=== PATIENT | male | born 1940 | race Caucasian/White ===

== ENCOUNTER 2016-10-01 06:55 | Inpatient (IN) | payer MEDICARE ==
[~2016-10-01] VITALS: Ht 170.2 cm; Wt 56.0 kg
[~2016-10-01 06:55] MED LIST: ALBU2.5V14 NEB; ASPI-612 PO; BUDE10.2 IH; CEFU500T46 PO; CYCL5TAB PO; FENT1PAT21 TD; GUAI118L20 PO; LORA2TAB89 PO; METO25TA4 PO; OMEG1CAP65 PO; OMEP20CA9 PO; OXYC1TAB9 PO; PROVENTIL HFA6.7 GM IH; SERT50TA8 PO; SIMV80TA3 PO; TIOT18CA IH; TRAZ100T12 PO; VITA1CAP PO; VITA400C11 PO; WARF4TAB68 PO; ZINC50TA29 PO
[2016-10-01] MEDS ORDERED: 0.9 % SODIUM CHLORIDE 10 ML DISP.SYRIN. IV PRN (07:15)
[2016-10-01 07:22] LABS: BASO % 1 % (0-3); EOS % 6 % (0-3); HEMATOCRIT 39.9 % (39.0-53.0); HEMOGLOBIN 13.2 g/dL (13.0-17.5); LYMPH # 1.2 x10^3/uL (1.0-4.8); LYMPH % 18 % (24-48); MEAN CORPUSCULAR HEMOGLOBIN 31 pg (25-35); MEAN CORPUSCULAR HGB CONC 33 g/dL (31-37); MEAN CORPUSCULAR VOLUME 93 fL (79-100); MONO % 11 % (0-9); NEUT % 65 % (31-73); PLATELET COUNT 327 x10^3/uL (140-400); RED BLOOD COUNT 4.31 x10^6/uL (4.30-5.70); RED CELL DISTRIBUTION WIDTH 14.3 % (11.5-14.5); WHITE BLOOD COUNT 6.7 x10^3/uL (4.0-11.0)
[2016-10-01] MEDS ORDERED: IV NORMAL SALINE 1000ML BAG 1,000 ML IV SCH (07:30)
[2016-10-01 07:34] LABS: INR 2.4 (0.8-1.1)
--- NOTE | 2016-10-01 07:58 | RAD ---
Indication change in mental status. Protocol study. A single view of the chest was obtained and is compared to an examination 05/18/2015. Postoperative changes are noted. There are probable background changes of emphysema or fibrosis. There is no consolidated pneumonia. Heart size and pulmonary vessels are within normal limits. Slight blunting of both costophrenic angles may be chronic reflecting scar. Small pleural effusions are not excluded. IMPRESSION: Chronic changes. No definite acute or focal process seen in the chest
[2016-10-01] MEDS ORDERED: fentaNYL PF VIAL 100 MCG/2 ML VIAL IV ONE ×2 (08:00→10:15)
--- NOTE | 2016-10-01 08:16 | EKG ---
[facility] [address] [place] [address] Test Date: 2016-10-01 Test Time: 07:25:24 Pat Name: MARVEL COHEN Department: Room: Gender: [employer] Operator Chief: : 1940 Requested By: JAMEL CRANE Order Number: [id number] Reading MD: Lakhwinder Collazo Measurements Intervals [place] Rate: 91 P: 53 FL: 172 QRS: 34 QRSD: 84 T: 64 QT: 346 QTc: 427 Interpretive Statements SINUS RHYTHM RI6.01 Unconfirmed report Compared to ECG 05/18/2015 15:19:16 No significant changes Electronically Signed On 10-01-2016 13:26:30 CDT by Lakhwinder Collazo
[2016-10-01 08:39] LABS: CALCIUM 8.6 mg/dL (8.5-10.1); CREATININE 0.7 mg/dL (0.7-1.3); GFR 110.2; POTASSIUM 3.6 mmol/L (3.5-5.1)
--- NOTE | 2016-10-01 08:39 | RAD ---
Indication change in mental status. Suspect CVA. Noncontrast images of the head were obtained. Note is made of a previous examination 12/06/2014. The calvarium appears unremarkable. There is a low-density mass occupying the frontal sinuses and extending into the ethmoid air cells. This is unchanged relative to the previous CT examination and is well represented on a MRI 01/05/2012 and likely parts representative of a chronic mucocele. There is partial opacification of the left maxillary sinus. Focal10 sinusitis is not excluded. The sphenoid sinus appears unremarkable as does the right maxillary sinus There is no subdural or epidural hematoma. There is no mass or midline shift. No hemorrhage is seen. No acute intracranial finding is apparent. IMPRESSION: No acute intracranial finding PQRS Compliance Statement: One or more of the following individualized dose reduction techniques were utilized for this examination: 1. Automated exposure control 2. Adjustment of the mA and/or kV according to patient size 3. Use of iterative reconstruction technique
[2016-10-01 08:45] LABS: ALBUMIN 3.3 g/dL (3.4-5.0); DIRECT BILIRUBIN 0.1 mg/dL (0.0-0.2); MAGNESIUM 2.1 mg/dL (1.8-2.4); TOTAL BILIRUBIN 0.5 mg/dL (0.2-1.0)
[2016-10-01 08:56] LABS: CKMB MASS 0.7 ng/mL (0.0-3.6); CREATINE KINASE 50 U/L (39-308)
--- NOTE | 2016-10-01 09:10 | PHYS DOC ---
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 Patient noted to be confused last night he went to bed and THIS morning according to the at the bedside and he did not recognize her. He denied any headache, chest pain, shortness of breath at the time. She did note any problems speaking or problems with orientation. Although he was not able to recommend her initially. On arrival he is awake alert and oriented 3 although he is very hard of hearing with broken hearing aids. There've been no changes in medications except the fact the baby he's not been using them as prescribed secondary the fact that they have been struggling financially and cannot afford them. Patient denies any trauma, fevers, neck pain, vision changes or other complaints. Review of Systems Review of Systems Constitutional: Denies fever or chills [] Eyes: Denies change in visual acuity, redness, or eye pain [] HENT: Denies nasal congestion or sore throat [] Respiratory: Denies cough he is chronically short of breath on 4-5 L nasal cannula is all the time. Cardiovascular: No additional information not addressed in HPI [] GI: Denies abdominal pain, nausea, vomiting, bloody stools or diarrhea [] : Denies dysuria or hematuria [] Musculoskeletal: She complains of chronic hip pain bilaterally chronic lower leg pain bilaterally chronic back pain Integument: Denies rash or skin lesions [] Neurologic: Denies headache, focal weakness or sensory changes he is very hard of hearing Endocrine: Denies polyuria or polydipsia [] Current Medications Current Medications Current Medications Medications (Trade) Dose Ordered Sig/Diogenes Start Time Stop Time Status Last Admin Dose Admin Acetaminophen (Tylenol) 650 mg PRN Q4HRS PRN 10/01/16 10:00 10/02/16 09:59 Albuterol/ Ipratropium (Duoneb) 3 ml RTQID 10/01/16 12:00 10/02/16 11:59 Azithromycin 250 ml @ 250 mls/hr 1X ONCE 10/01/16 10:15 10/01/16 11:14 Fentanyl Citrate (Fentanyl 2ml Vial) 75 mcg 1X ONCE 10/01/16 10:15 10/01/16 10:16 DC Methylprednisolone Sodium Succinate (SOLU-Medrol 125MG VIAL) 125 mg 1X ONCE 10/01/16 10:15 10/01/16 10:16 DC Ondansetron HCl (Zofran) 4 mg PRN Q8HRS PRN 10/01/16 10:00 10/02/16 09:59 Sodium Chloride 1,000 ml @ 100 mls/hr Q10H 10/01/16 10:15 10/02/16 10:14 Sodium Chloride (Normal Saline Flush) 10 ml QSHIFT PRN 10/01/16 07:15 Allergies Allergies Allergies Coded Allergies Type Severity Reaction Last Updated Verified ciprofloxacin Allergy Intermediate SKIN PEELS 12/03/14 Yes pentazocine Allergy Intermediate NERVOUS 12/03/14 Yes I S O L A T I O N *CONTACT* Allergy Unknown 06/11/14 Yes Physical Exam Physical Exam Agents vital signs reviewed upon arrival patient noted to be hypertensive which is chronic in nature for patient. Noted to be mildly hypoxic at 92% on room air Constitutional: Is thin and cachectic in no acute distress nontoxic in appearance. He's [place] night 3 able answer questions if you shout answers. HENT: Normocephalic, atraumatic, bilateral external ears normal, dry oropharynx with poor dentition., no oral exudates, nose normal. [] Eyes: PERRLA, EOMI, conjunctiva normal, no discharge. [] Neck: Normal range of motion, no tenderness, supple, no stridor. [] Cardiovascular:Heart rate regular rhythm, no murmur [] Lungs & Thorax: Decreased breath sounds bilaterally quiet with no optic wheezing no retractions noted evidence of accessory muscle use. Abdomen: Bowel sounds normal, soft, no tenderness, no masses, no pulsatile masses. [] Skin: Warm, dry, no erythema, no rash. [] Back: No tenderness, no CVA tenderness. [] Extremities: No tenderness, no cyanosis, no clubbing, ROM intact, no edema. [] Neurologic: Alert and oriented X 3, normal motor function, normal sensory function, no focal deficits noted. [] Psychologic: Affect normal, judgement normal, mood normal. [] stroke Score upon arrival was 0. 1a. Level of consciousness: 0 = Alert; keenly responsive. 1 = Not alert; but arousable by minor stimulation to obey, answer, or respond. 2 = Not alert; requires repeated stimulation to attend, or is obtunded and requires strong or painful stimulation to make movements (not stereotyped). 3 = Responds only with reflex motor or autonomic effects or totally unresponsive , flaccid, and areflexic. 1b. LOC questions: 0 = Answers both questions correctly. 1 = Answers one question correctly. 2 = Answers neither question correctly. 1c. LOC commands: 0 = Performs both tasks correctly. 1 = Performs one task correctly. 2 = Performs neither task correctly. 2. Best gaze: 0 = Normal. 1 = Partial gaze palsy; gaze is abnormal in one or both eyes, but forced deviation or total gaze paresis is not present. 2 = Forced deviation, or total gaze paresis not overcome by the oculocephalic maneuver. 3. Visual: 0 = No visual loss. 1 = Partial hemianopia. 2 = Complete hemianopia. 3 = Bilateral hemianopia (blind including cortical blindness). 4. Facial palsy: 0 = Normal symmetrical movements. 1 = Minor paralysis (flattened nasolabial fold, asymmetry on smiling). 2 = Partial paralysis (total or near-total paralysis of lower face). 3 = Complete paralysis of one or both sides (absence of facial movement in the upper and lower face). 5. Motor arm: 0 = No drift; limb holds 90 (or 45) degrees for full 10 seconds. 1 = Drift; limb holds 90 (or 45) degrees, but drifts down before full 10 seconds ; does not hit bed or other support. 2 = Some effort against gravity; limb cannot get to or maintain (if cued) 90 ( or 45) degrees, drifts down to bed, but has some effort against gravity. 3 = No effort against gravity; limb falls. 4 = No movement. UN = Amputation or joint fusion, explain: 5a. Left arm 5b. Right arm 6. Motor le = No drift; leg holds 30-degree position for full 5 seconds. 1 = Drift; leg falls by the end of the 5-second period but does not hit bed. 2 = Some effort against gravity; leg falls to bed by 5 seconds, but has some effort against gravity. 3 = No effort against gravity; leg falls to bed immediately. 4 = No movement. UN = Amputation or joint fusion, explain: 6a. Left leg 6b. Right leg 7. Limb ataxia: 0 = Absent. 1 = Present in one limb. 2 = Present in two limbs. UN = Amputation or joint fusion 8. Sensory: 0 = Normal; no sensory loss. 1 = Fpbu-qp-nygvfonz sensory loss; patient feels pinprick is less sharp or is dull on the affected side; or there is a loss of superficial pain with pinprick , but patient is aware of being touched. 2 = Severe to total sensory loss; patient is not aware of being touched in the face, arm, and leg. 9. Best language: 0 = No aphasia; normal. 1 = Zlki-oc-ysavmrgu aphasia; some obvious loss of fluency or facility of comprehension, without significant limitation on ideas expressed or form of expression. Reduction of speech and/or comprehension, however, makes conversation about provided materials difficult or impossible. For example, in conversation about provided materials, examiner can identify picture or naming card content from patient's response. 2 = Severe aphasia; all communication is through fragmentary expression; great need for inference, questioning, and guessing by the listener. Range of information that can be exchanged is limited; listener carries burden of communication. Examiner cannot identify materials provided from patient response. 3 = Mute, global aphasia; no usable speech or auditory comprehension. 10. Dysarthria: 0 = Normal. 1 = Kvav-ib-onnruadp dysarthria; patient slurs at least some words and, at worst , can be understood with some difficulty. 2 = Severe dysarthria; patient's speech is so slurred as to be unintelligible in the absence of or out of proportion to any dysphasia, or is mute/anarthric. UN = Intubated or other physical barrier, explain: 11. Extinction and inattention (formerly neglect): 0 = No abnormality. 1 = Visual, tactile, auditory, spatial, or personal inattention or extinction to bilateral simultaneous stimulation in one of the sensory modalities. 2 = Profound julee-inattention or extinction to more than one modality; does not recognize own hand or orients to only one side of space. Current Patient Data Vital Signs Vital Signs Date Time Temp Pulse Resp B/P (MAP) Pulse Ox O2 Delivery O2 Flow Rate FiO2 10/01/16 07:59 18 10/01/16 07:10 97.7 101 181/96 (124) 92 Room Air 97.7 Lab Values Laboratory Tests Test 10/01/16 07:00 10/01/16 08:00 10/01/16 09:04 White Blood Count 6.7 x10^3/uL (4.0-11.0) Red Blood Count 4.31 x10^6/uL (4.30-5.70) Hemoglobin 13.2 g/dL (13.0-17.5) Hematocrit 39.9 % (39.0-53.0) Mean Corpuscular Volume 93 fL (79-100) Mean Corpuscular Hemoglobin 31 pg (25-35) Mean Corpuscular Hemoglobin Concent 33 g/dL (31-37) Red Cell Distribution Width 14.3 % (11.5-14.5) Platelet Count 327 x10^3/uL (140-400) Neutrophils (%) (Auto) 65 % (31-73) Lymphocytes (%) (Auto) 18 % (24-48) L Monocytes (%) (Auto) 11 % (0-9) H Eosinophils (%) (Auto) 6 % (0-3) H Basophils (%) (Auto) 1 % (0-3) Neutrophils # (Auto) 4.4 x10^3uL (1.8-7.7) Lymphocytes # (Auto) 1.2 x10^3/uL (1.0-4.8) Monocytes # (Auto) 0.7 x10^3/uL (0.0-1.1) Eosinophils # (Auto) 0.4 x10^3/uL (0.0-0.7) Basophils # (Auto) 0.0 x10^3/uL (0.0-0.2) Prothrombin Time 25.0 SEC (11.7-14.0) H Prothrombin Time INR 2.4 (0.8-1.1) H PTT 54 SEC (24-38) H Sodium Level 141 mmol/L (136-145) Potassium Level 3.6 mmol/L (3.5-5.1) Chloride Level 105 mmol/L (98-107) Carbon Dioxide Level 28 mmol/L (21-32) Anion Gap 8 (6-14) Blood Urea Nitrogen 9 mg/dL (8-26) Creatinine 0.7 mg/dL (0.7-1.3) Estimated GFR (Cockcroft-Gault) 110.2 Glucose Level 107 mg/dL (70-99) H Lactic Acid Level 0.4 mmol/L (0.4-2.0) Calcium Level 8.6 mg/dL (8.5-10.1) Magnesium Level 2.1 mg/dL (1.8-2.4) Total Bilirubin 0.5 mg/dL (0.2-1.0) Direct Bilirubin 0.1 mg/dL (0.0-0.2) Aspartate Amino Transferase (AST) 24 U/L (15-37) Alanine Aminotransferase (ALT) 24 U/L (16-63) Alkaline Phosphatase 137 U/L (46-116) H Ammonia 18 mcmol/L (11-34) Creatine Kinase 50 U/L (39-308) Creatine Kinase MB (Mass) 0.7 ng/mL (0.0-3.6) Creatine Kinase MB Relative Index % (0-4) Troponin I Quantitative < 0.017 ng/mL (0.000-0.055) NP-Rhh-R-Type Natriuretic Peptide 574 pg/mL (0-124) H Total Protein 7.0 g/dL (6.4-8.2) Albumin 3.3 g/dL (3.4-5.0) L Thyroid Stimulating Hormone (TSH) 0.538 uIU/mL (0.358-3.74) Urine Collection Type Unknown Urine Color Yellow Urine Clarity Clear Urine pH 7.5 Urine Specific [place] 1.015 Urine Protein Negative mg/dL (NEG-TRACE) Urine Glucose (UA) Negative mg/dL (NEG) Urine Ketones (Stick) Negative mg/dL (NEG) Urine Blood Negative (NEG) Urine Nitrite Negative (NEG) Urine Bilirubin Negative (NEG) Urine Urobilinogen Dipstick 0.2 mg/dL (0.2 mg/dL) Urine Leukocyte Esterase Negative (NEG) Urine RBC 6-10 /HPF (0-2) Urine WBC 1-4 /HPF (0-4) Urine Squamous Epithelial Cells Mod /LPF Urine Bacteria Few /HPF (0-FEW) Laboratory Tests 10/01/16 07:00 Laboratory Tests 10/01/16 08:00 EKG EKG [] KG timed 0 7:25 AM demonstrates sinus rhythm at 91 IL interval of 172 QRS which is normal 84 QTC which is normal at 427 normal sinus rhythm analysis 7 T- wave changes consistent with acute ischemia. Read by Dr. Crane. Radiology/Procedures Radiology/Procedures [] [facility] [address] [place] [address] IMAGING REPORT Signed PATIENT: MARVEL COHEN ACCOUNT: [id number] : 1940 LOCATION: ER AGE: 76 SEX: M EXAM STATUS: REG ER ORD. PHYSICIAN: JAMEL CRANE MD REASON: ams PROCEDURE: PORTABLE CHEST 1V Indication change in mental status. Protocol study. A single view of the chest was obtained and is compared to an examination 05/18/2015. Postoperative changes are noted. There are probable background changes of emphysema or fibrosis. There is no consolidated pneumonia. Heart size and pulmonary vessels are within normal limits. Slight blunting of both costophrenic angles may be chronic reflecting scar. Small pleural effusions are not excluded. IMPRESSION: Chronic changes. No definite acute or focal process seen in the chest DICTATED and SIGNED BY: ROSALIA HERNANDEZ MD DATE: 10/01/16 075 CC: JAMEL CRANE MD; ILIANA PAUL [address] [place] [address] IMAGING REPORT Signed PATIENT: MARVEL COHEN ACCOUNT: [id number] : 1940 LOCATION: ER AGE: 76 SEX: M EXAM STATUS: REG ER ORD. PHYSICIAN: JAMEL CRANE MD REASON: ams PROCEDURE: CT HEAD WO CONTRAST Indication change in mental status. Suspect CVA. Noncontrast images of the head were obtained. Note is made of a previous examination 12/06/2014. The calvarium appears unremarkable. There is a low-density mass occupying the frontal sinuses and extending into the ethmoid air cells. This is unchanged relative to the previous CT examination and is well represented on a MRI 01/05/2012 and likely sales and marketing representative of a chronic mucocele. There is partial opacification of the left maxillary sinus. Focal10 sinusitis is not excluded. The sphenoid sinus appears unremarkable as does the right maxillary sinus There is no subdural or epidural hematoma. There is no mass or midline shift. No hemorrhage is seen. No acute intracranial finding is apparent. IMPRESSION: No acute intracranial finding PQRS Compliance Statement: One or more of the following individualized dose reduction techniques were utilized for this examination: 1. Automated exposure control 2. Adjustment of the mA and/or kV according to patient size 3. Use of iterative reconstruction technique Course & Med Decision Making Course & Med Decision Making Pertinent Labs and Imaging studies reviewed. (See chart for details) Present with acute altered mental status of confusion and loss of memory. Patient's symptoms began at 11 PM last night. Patient is not a candidate for lytics because of this. At this point his stroke scale is 0 and his memory and posterior back to normal. my differential includes but not limited to: Neurally mediated vasovagal syncope, situational syncope, cardiac sinus syncope , orthostatic hypertension, medications, psychiatric interventions, neurologic syncope, cardiogenic syncopal B, to include organic heart disease congestive heart failure, cardiac dysrhythmia, seizure disorder, stroke or transient ischemic attack, bradycardia dysrhythmias, tachycardia dysrhythmias, PT, V. fib V. fib, cardiac abnormalities like first degree secondary third-degree AV blocks , prolonged QT, hypertrophic Roberth myopathy, severe pulmonic stenosis, pulmonary arterial hypertension, atrial myxomas, aortic stenosis, valvular failure, alcohol consumption, adrenal insufficiency, drug effects from things like antidepressants, antihypertensive agents like beta blockers, vasodilators including calcium channel blockers and nitrates, autonomic insufficiency. Patient is significant history of heart disease and diabetes is likely and I will admit him to the hospital for continued evaluation by neurology and cardiology. This may have been a TIA that is now resolved. Time is now 9:09 Millint tells me that their symptoms given during CC are improved. We reviewed labs and radiology reports with patient and any family at bedside. His urinalysis is still pending. [] Time is now 945 patient has increasing wheezing and tightness in his chest with increased respiratory rate. I will order a DuoNeb, sodium Medrol, blood cultures and lactic acid. Although there is nothing on his chest x-ray concerning for a possible infiltrate. Patient is suffering from COPD. Investigation Division Captain note: [employer] sales service professional called at of the service Dr. carr called initially at 9:50 AM Consult called back at 9:52 AM Discussed the case I presented and they agreed with admission. Time of acceptance 9:52 AM We discussed treatment needs for COPD, and altered mental status which is resolved likely TIA will likely need neurology, cardiology evaluation eventually their discretion MRI of the brain. Since urinalysis demonstrates mild epithelial cells contaminated a few bacteria and a few white blood cells. Doubt urosepsis I spent approximately 45-50 minutes working and engaged directly in the patient care providing critical care evaluation this includes but not limited to time spent engaged in work directly related to the individual patients care. I spent time at the bedside, reviewing test results, discussing the case with staff, documenting the medical record and time spent with EMS discussing specific treatment issues when the patient presented and during his evaluation. Impression stroke scale at admission was 0. Dragon Disclaimer Dragon Disclaimer This electronic medical record was generated, in whole or in part, using a voice recognition dictation system. Departure Departure Impression: Primary Impression: Acute and chronic respiratory failure ([id number]) Additional Impressions: Altered mental status TIA (transient ischemic attack) COPD exacerbation Referrals: ILIANA PAUL (PCP) Problem Qualifiers JAMEL CRANE MD Oct 01, 2016 09:10
[2016-10-01 09:13] LABS: BILIRUBIN,URINE NEGATIVE (NEG); GLUCOSE,URINE NEGATIVE (NEG); NITRITE,URINE NEGATIVE (NEG); PH,URINE 7.5; PROTEIN,URINE NEGATIVE (NEG-TRACE); UROBILINOGEN,URINE 0.2 mg/dL (0.2 mg/dL)
[2016-10-01 09:26] LABS: SQUAMOUS EPITHELIAL CELL,UR MOD /LPF
[2016-10-01 09:27] LABS: BACTERIA,URINE FEW /HPF (0-FEW)
[2016-10-01] MEDS ORDERED: ONDANSETRON PF 4 MG/2 ML VIAL. IV PRN (10:00)
[2016-10-01] MEDS ORDERED: ACETAMINOPHEN 325 MG TABLET. PO PRN (10:00)
[2016-10-01] MEDS ORDERED: methylPREDNISolone SOD SUCC PF 125 MG/2 ML VIAL. IV ONE (10:15)
[2016-10-01] MEDS ORDERED: IPRATRPIUM/ALBUTEROL 0.5/2.5MG 3 ML NEBU. NEB ONE (10:15)
[2016-10-01] MEDS ORDERED: AZITHRMYCN 500MG IVPB FOR OMNI 250 ML IV ONE (10:15)
[2016-10-01] MEDS: IV NORMAL SALINE 1000ML BAG 1,000 ML IV SCH ×2 (10:27→20:09)
[2016-10-01 11:00] VITALS: BP 159/78
[2016-10-01] MEDS ORDERED: WARF5TAB7 PO (11:15)
[2016-10-01] MEDS ORDERED: POTA20TA82 PO (11:16)
[2016-10-01] MEDS ORDERED: PANT40TA5 PO (11:16)
[2016-10-01] MEDS ORDERED: FURO40TA4 PO (11:16)
[2016-10-01] MEDS ORDERED: IPRATRPIUM/ALBUTEROL 0.5/2.5MG 3 ML NEBU. NEB SCH (12:00)
[2016-10-01 14:35] VITALS: BP 124/63
[2016-10-01] MEDS ORDERED: KETOROLAC 15 MG/ML VIAL. IV ONE (15:30)
[2016-10-01] MEDS ORDERED: ASPIRIN 325 MG TABLET PO ONE (16:15)
--- NOTE | 2016-10-01 16:23 | PDOC1 ---
History and Physical Date of Admission Date of Admission DATE: 10/01/16 TIME: 16:14 Identification/Chief Complaint Chief Complaint confusion Problems: History of Present Illness History of Present Illness José Luis Bolanos is a pleasant 76-year-old male with history of COPD 4 L nasal cannula at [facility]. Brought to ER by his for acute confusion earlier, some confusion last night, and could not recognize his this AM. no headache, but not oriented , able to talk and did not slur any words He has little recollection of this, his reports he is currently much better he has chronic pain and takes pain and anxiety meds, chronic joint pain of hips, knees, back, both hips s/p replacement s/p fracture, with acute pain, asking for more pain meds than tylenol given in ER, wants his home dose of oxy 10 he has recent trouble affording meds Past Medical History Past Medical History history of depression, anxiety, chronic hip pain, CAD, fibromyalgia, hypertension, hyperlipidemia, Cardiovascular: CAD, CHF, HTN, Hyperlipidemia, Valve insufficiency Pulmonary: COPD CENTRAL NERVOUS SYSTEM: Other GI: GERD Heme/Onc: Anemia NOS, Other Hepatobiliary: No pertinent hx Psych: Anxiety Musculoskeletal: Osteoarthritis, Other Rheumatologic: No pertinent hx Infectious disease: No pertinent hx Renal/: No pertinent hx Endocrine: No pertinent hx Past Surgical History Past Surgical History: CABG, Hernia Repair, Total hip replacement, Total knee replacement, Other Family History Family History: Family History Unknown Social History Smoke: Quit ALCOHOL: none Drugs: None Current Problem List Problem List Problems Medical Problems: (1) Acute and chronic respiratory failure ([id number]) Status: Acute (2) Altered mental status Status: Acute (3) COPD exacerbation Status: Acute (4) TIA (transient ischemic attack) Status: Acute Problems: Current Medications Current Medications Current Medications Sodium Chloride 1,000 ml @ 1,000 mls/hr Q1H IV Last administered on 10/01/16 07:28; Start 10/01/16 at 07:30; Stop 10/01/16 at 08:29; Status DC Sodium Chloride (Normal Saline Flush) 10 ml QSHIFT PRN IV AFTER MEDS AND BLOOD DRAWS; Start 10/01/16 at 07:15 Fentanyl Citrate (Fentanyl 2ml Vial) 50 mcg 1X ONCE IV Last administered on 07:59; Start 10/01/16 at 08:00; Stop 10/01/16 at 08:01; Status DC Albuterol/ Ipratropium (Duoneb) 3 ml 1X ONCE NEB Last administered on 10:05; Start 10/01/16 at 10:15; Stop 10/01/16 at 10:16; Status DC Methylprednisolone Sodium Succinate (SOLU-Medrol 125MG VIAL) 125 mg 1X ONCE IV Last administered on 10/01/16 10:27; Start 10/01/16 at 10:15; Stop 10/01/16 at 10:16; Status DC Azithromycin 250 ml @ 250 mls/hr 1X ONCE IV Last administered on 10/01/16 10: 27; Start 10/01/16 at 10:15; Stop 10/01/16 at 11:14; Status DC Fentanyl Citrate (Fentanyl 2ml Vial) 75 mcg 1X ONCE IV Last administered on 10:26; Start 10/01/16 at 10:15; Stop 10/01/16 at 10:16; Status DC Ondansetron HCl (Zofran) 4 mg PRN Q8HRS PRN IV NAUSEA/VOMITING; Start 10/01/16 at 10:00; Stop 10/02/16 at 09:59 Sodium Chloride 1,000 ml @ 100 mls/hr Q10H IV Last administered on 10/01/16 10 :27; Start 10/01/16 at 10:15; Stop 10/02/16 at 10:14 Acetaminophen (Tylenol) 650 mg PRN Q4HRS PRN PO FEVER; Start 10/01/16 at 10:00; Stop 10/02/16 at 09:59 Albuterol/ Ipratropium (Duoneb) 3 ml RTQID NEB Last administered on 10/01/16 13 :06; Start 10/01/16 at 12:00; Stop 10/01/16 at 15:24; Status DC Aspirin (Ecotrin) 81 mg DAILY PO ; Start 10/02/16 at 09:00 Furosemide (Lasix) 40 mg DAILY PO ; Start 10/01/16 at 16:00 Oxycodone/ Acetaminophen (Percocet 10/325) 1 tab QID PO ; Start 10/01/16 at 17:00 Pantoprazole Sodium (Protonix) 40 mg DAILYAC PO ; Start 10/01/16 at 16:00 Sertraline HCl (Zoloft) 100 mg DAILY PO ; Start 10/01/16 at 16:00 Warfarin Sodium (Coumadin) 5 mg DAILY16 PO ; Start 10/01/16 at 16:00 Non-Formulary Medication 2 puff QID IH ; Start 10/01/16 at 17:00; Status UNV Non-Formulary Medication 2 puff BID IH ; Start 10/01/16 at 21:00; Status UNV Cyclobenzaprine HCl (Flexeril) 5 mg QHS PO ; Start 10/01/16 at 21:00 Potassium Chloride (Klor-Con) 20 meq DAILYWBKFT PO ; Start 10/02/16 at 08:00 Non-Formulary Medication 1 cap DAILY IH ; Start 10/02/16 at 09:00; Status UNV Lorazepam (Ativan) 1 mg PRN Q6HRS PRN PO ANXIETY / AGITATION; Start 10/01/16 at 15:15 Ketorolac Tromethamine (Toradol) 15 mg 1X ONCE IV ; Start 10/01/16 at 15:30; Stop 10/01/16 at 15:31; Status DC Budesonide (Pulmicort) 0.5 mg RTBID NEB ; Start 10/01/16 at 20:00 Warfarin Sodium (Coumadin Per Physician) 1 each PRN DAILY PRN MC SEE COMMENTS; Start 10/01/16 at 15:30 Albuterol/ Ipratropium (Duoneb) 3 ml RTQID NEB ; Start 10/01/16 at 16:00 Active Scripts Active Reported Furosemide 40 Mg Tablet 1 Tab PO DAILY Pantoprazole Sodium 40 Mg Tablet.dr 1 Tab PO DAILY Potassium Chloride 20 Meq Tablet.er 20 Meq PO DAILY Warfarin Sodium 5 Mg Tablet 1 Tab PO DAILY Ativan (Lorazepam) 2 Mg Tablet 2 Mg PO TID Spiriva (Tiotropium Comfort) 18 Mcg Cap.w.dev 1 Cap IH DAILY Proventil Hfa Inhaler (Albuterol Sulfate) 6.7 Gm Hfa.aer.ad 2 Puff IH QID Cyclobenzaprine Hcl 5 Mg Tablet 1 Tab PO HS Symbicort 160-4.5 Mcg Inhaler (Budesonide/Formoterol Fumarate) 10.2 Gm Hfa.aer.ad 2 Puff IH BID Sertraline Hcl 50 Mg Tablet 100 Mg PO DAILY Zinc 50 Mg Tablet 50 Mg PO Vitamin B Complex 1 Each Capsule 1 Each PO Vitamin E 400 Unit Capsule 400 Unit PO Aspirin Ec (Aspirin) 81 Mg Tablet. 1 Tab PO DAILY Fish Oil Ec 1,200 Mg Softgel ([place]-3S/Dha/Epa/Fish Oil) 1 Each Capsule. 1 Each PO Oxycodone-Acetaminophen 10-325 (Oxycodone Hcl/Acetaminophen) 1 Each Tablet 1 Tab PO QID Allergies Allergies: Coded Allergies: ciprofloxacin (Verified Allergy, Intermediate, SKIN PEELS, 12/03/14) pentazocine (Verified Allergy, Intermediate, NERVOUS, 12/03/14) I S O L A T I O N *CONTACT* (Verified Allergy, Unknown, 06/11/14) mrsa + ROS General: No: Chills, Night Sweats, Fatigue, Malaise, Appetite, Other PSYCHOLOGICAL ROS: YES: Concentration difficultie, Decreased libido, Other ( hard of hearing), No: Anxiety, Behavioral Disorder, Depression, Disorientation, Hallucinations , Hostility, Irritablity, Memory difficulties, Mood Swings, Obsessive thoughts Eyes: No Blurry vision, No Decreased vision, No Double vision, No Dry eyes, No Excessive tearing, No Eye Pain, No Itchy Eyes, No Loss of vision, No Photophobia , No Scotomata, No Uses contacts, No Uses glasses, No Other HEENT: No: Heacaches, Visual Changes, Hearing change, Nasal congestion, Nasal discharge, Oral lesions, Sinus pain, Sore Throat, Epistaxis, Sneezing, Snoring, Tinnitus, Vertigo, Vocal changes, Other Respiratory: YES: Cough, SOB with excertion, No: Hemoptysis, Orthopnea, Pleuritic Pain, Shortness of breath, Sputum Changes, Stridor, Tachypnea, Wheezing, Other Cardiovascular: No Chest Pain, No Palpitations, No Orthopnea, No Paroxysmal Noc. Dyspnea, No Edema, No Lt Headedness, No Other Gastrointestinal: No Nausea, No Vomiting, No Abdominal Pain, No Diarrhea, No Constipation, No Melena, No Hematochezia, No Other Genitourinary: No Dysuria, No Frequency, No Incontinence, No Hematuria, No Retention, No Discharge, No Urgency, No Pain, No Flank Pain, No Other, No , No , No , No , No , No , No Musculoskeletal: Yes Gait Disturbance, Yes Joint Pain, Yes Joint Stiffness, Yes Joint Swelling, Yes Pain In: (back, hips, knees), No Muscle Pain, No Muscular Weakness, No Swelling In:, No Other Neurological: Yes Gait Disturbance, No Behavorial Changes, No Bowel/Bladder ControlChng, No Confusion, No Dizziness, No Headaches, No Impaired Coord/balance, No Memory Loss, No Numbness/ Tingling, No Seizures, No Speech Problems, No Tremors, No Visual Changes, No Weakness, No Other Skin: Yes Dry Skin, No Eczema, No Hair Changes, No Lumps, No Mole Changes, No Mottling, No Nail Changes, No Pruritus, No Rash, No Skin Lesion Changes, No Other, No Acne Physical Exam General: Alert, Oriented X3, Cooperative, No acute distress HEENT: EOMI, Mucous membr. moist/pink Heart: no gallops, no murmurs Abdomen: Normal bowel sounds Rectal Exam: not examined Extremities: No edema, Normal pulses Skin: No significant lesion Neuro: Sensation intact Psych/Mental Status: Mood NL, Other (flat affect) Vitals Vitals Vital Signs Date Time Temp Pulse Resp B/P (MAP) Pulse Ox O2 Delivery O2 Flow Rate FiO2 10/01/16 14:35 98.3 99 20 124/63 (83) 96 Nasal Cannula 2.0 98.3 Labs Labs Laboratory Tests Test 10/01/16 07:00 10/01/16 08:00 10/01/16 09:04 White Blood Count 6.7 x10^3/uL (4.0-11.0) Red Blood Count 4.31 x10^6/uL (4.30-5.70) Hemoglobin 13.2 g/dL (13.0-17.5) Hematocrit 39.9 % (39.0-53.0) Mean Corpuscular Volume 93 fL (79-100) Mean Corpuscular Hemoglobin 31 pg (25-35) Mean Corpuscular Hemoglobin Concent 33 g/dL (31-37) Red Cell Distribution Width 14.3 % (11.5-14.5) Platelet Count 327 x10^3/uL (140-400) Neutrophils (%) (Auto) 65 % (31-73) Lymphocytes (%) (Auto) 18 % (24-48) Monocytes (%) (Auto) 11 % (0-9) Eosinophils (%) (Auto) 6 % (0-3) Basophils (%) (Auto) 1 % (0-3) Neutrophils # (Auto) 4.4 x10^3uL (1.8-7.7) Lymphocytes # (Auto) 1.2 x10^3/uL (1.0-4.8) Monocytes # (Auto) 0.7 x10^3/uL (0.0-1.1) Eosinophils # (Auto) 0.4 x10^3/uL (0.0-0.7) Basophils # (Auto) 0.0 x10^3/uL (0.0-0.2) Prothrombin Time 25.0 SEC (11.7-14.0) Prothromb Time International Ratio 2.4 (0.8-1.1) Activated Partial Thromboplast Time 54 SEC (24-38) Sodium Level 141 mmol/L (136-145) Potassium Level 3.6 mmol/L (3.5-5.1) Chloride Level 105 mmol/L (98-107) Carbon Dioxide Level 28 mmol/L (21-32) Anion Gap 8 (6-14) Blood Urea Nitrogen 9 mg/dL (8-26) Creatinine 0.7 mg/dL (0.7-1.3) Estimated GFR (Cockcroft-Gault) 110.2 Glucose Level 107 mg/dL (70-99) Lactic Acid Level 0.4 mmol/L (0.4-2.0) Calcium Level 8.6 mg/dL (8.5-10.1) Magnesium Level 2.1 mg/dL (1.8-2.4) Total Bilirubin 0.5 mg/dL (0.2-1.0) Direct Bilirubin 0.1 mg/dL (0.0-0.2) Aspartate Amino Transf (AST/SGOT) 24 U/L (15-37) Alanine Aminotransferase (ALT/SGPT) 24 U/L (16-63) Alkaline Phosphatase 137 U/L (46-116) Ammonia 18 mcmol/L (11-34) Creatine Kinase 50 U/L (39-308) Creatine Kinase MB (Mass) 0.7 ng/mL (0.0-3.6) Creatine Kinase MB Relative Index % (0-4) Troponin I Quantitative < 0.017 ng/mL (0.000-0.055) QM-Xiz-[id number]-Type Natriuretic Peptide 574 pg/mL (0-124) Total Protein 7.0 g/dL (6.4-8.2) Albumin 3.3 g/dL (3.4-5.0) Thyroid Stimulating Hormone (TSH) 0.538 uIU/mL (0.358-3.74) Urine Collection Type Unknown Urine Color Yellow Urine Clarity Clear Urine pH 7.5 Urine Specific Mertens 1.015 Urine Protein Negative mg/dL (NEG-TRACE) Urine Glucose (UA) Negative mg/dL (NEG) Urine Ketones (Stick) Negative mg/dL (NEG) Urine Blood Negative (NEG) Urine Nitrite Negative (NEG) Urine Bilirubin Negative (NEG) Urine Urobilinogen Dipstick 0.2 mg/dL (0.2 mg/dL) Urine Leukocyte Esterase Negative (NEG) Urine RBC 6-10 /HPF (0-2) Urine WBC 1-4 /HPF (0-4) Urine Squamous Epithelial Cells Mod /LPF Urine Bacteria Few /HPF (0-FEW) Laboratory Tests Test 10/01/16 07:00 10/01/16 08:00 10/01/16 09:04 White Blood Count 6.7 x10^3/uL (4.0-11.0) Red Blood Count 4.31 x10^6/uL (4.30-5.70) Hemoglobin 13.2 g/dL (13.0-17.5) Hematocrit 39.9 % (39.0-53.0) Mean Corpuscular Volume 93 fL (79-100) Mean Corpuscular Hemoglobin 31 pg (25-35) Mean Corpuscular Hemoglobin Concent 33 g/dL (31-37) Red Cell Distribution Width 14.3 % (11.5-14.5) Platelet Count 327 x10^3/uL (140-400) Neutrophils (%) (Auto) 65 % (31-73) Lymphocytes (%) (Auto) 18 % (24-48) Monocytes (%) (Auto) 11 % (0-9) Eosinophils (%) (Auto) 6 % (0-3) Basophils (%) (Auto) 1 % (0-3) Neutrophils # (Auto) 4.4 x10^3uL (1.8-7.7) Lymphocytes # (Auto) 1.2 x10^3/uL (1.0-4.8) Monocytes # (Auto) 0.7 x10^3/uL (0.0-1.1) Eosinophils # (Auto) 0.4 x10^3/uL (0.0-0.7) Basophils # (Auto) 0.0 x10^3/uL (0.0-0.2) Prothrombin Time 25.0 SEC (11.7-14.0) Prothromb Time International Ratio 2.4 (0.8-1.1) Activated Partial Thromboplast Time 54 SEC (24-38) Sodium Level 141 mmol/L (136-145) Potassium Level 3.6 mmol/L (3.5-5.1) Chloride Level 105 mmol/L (98-107) Carbon Dioxide Level 28 mmol/L (21-32) Anion Gap 8 (6-14) Blood Urea Nitrogen 9 mg/dL (8-26) Creatinine 0.7 mg/dL (0.7-1.3) Estimated GFR (Cockcroft-Gault) 110.2 Glucose Level 107 mg/dL (70-99) Lactic Acid Level 0.4 mmol/L (0.4-2.0) Calcium Level 8.6 mg/dL (8.5-10.1) Magnesium Level 2.1 mg/dL (1.8-2.4) Total Bilirubin 0.5 mg/dL (0.2-1.0) Direct Bilirubin 0.1 mg/dL (0.0-0.2) Aspartate Amino Transf (AST/SGOT) 24 U/L (15-37) Alanine Aminotransferase (ALT/SGPT) 24 U/L (16-63) Alkaline Phosphatase 137 U/L (46-116) Ammonia 18 mcmol/L (11-34) Creatine Kinase 50 U/L (39-308) Creatine Kinase MB (Mass) 0.7 ng/mL (0.0-3.6) Creatine Kinase MB Relative Index % (0-4) Troponin I Quantitative < 0.017 ng/mL (0.000-0.055) MO-Dnf-I-Type Natriuretic Peptide 574 pg/mL (0-124) Total Protein 7.0 g/dL (6.4-8.2) Albumin 3.3 g/dL (3.4-5.0) Thyroid Stimulating Hormone (TSH) 0.538 uIU/mL (0.358-3.74) Urine Collection Type Unknown Urine Color Yellow Urine Clarity Clear Urine pH 7.5 Urine Specific Mertens 1.015 Urine Protein Negative mg/dL (NEG-TRACE) Urine Glucose (UA) Negative mg/dL (NEG) Urine Ketones (Stick) Negative mg/dL (NEG) Urine Blood Negative (NEG) Urine Nitrite Negative (NEG) Urine Bilirubin Negative (NEG) Urine Urobilinogen Dipstick 0.2 mg/dL (0.2 mg/dL) Urine Leukocyte Esterase Negative (NEG) Urine RBC 6-10 /HPF (0-2) Urine WBC 1-4 /HPF (0-4) Urine Squamous Epithelial Cells Mod /LPF Urine Bacteria Few /HPF (0-FEW) VTE Prophylaxis Ordered VTE Prophylaxis Devices: Yes VTE Pharmacological Prophylaxi: No Assessment/Plan Assessment/Plan confusion, metabolic encephalopathy likely, poss absence seizure,. less likely TIA but will give aspirin, check lipids, consult neuro COPD, chronic combined respiratory failure, 4 liters 02, pulm consult, nebs, abx given in ER mult joint pain, hips, knees, back with OA and mult fractures, consult physiatry weakness and debility and falls, Pt an OT no coumadin, afib, chronic diastolic CHF admit, DORINA WELSH MD Oct 01, 2016 16:23
[2016-10-01] MEDS: SERTRALINE 50 MG TABLET. PO SCH (16:24)
[2016-10-01] MEDS: PANTOPRAZOLE 40 MG TABLET.DR. PO SCH (16:24)
[2016-10-01] MEDS: FUROSEMIDE 40 MG TABLET. PO SCH (16:25)
[2016-10-01] MEDS: oxyCODONE/APAP 10/325 1 TAB TABLET PO SCH ×2 (16:26→20:09)
[2016-10-01] MEDS: WARFARIN 5 MG TABLET. PO SCH (16:26)
[2016-10-01] MEDS ORDERED: NON FORMULARY ITEM (Albuterol Sulfate (Proventil Hfa Inhaler) 2 PUFF) IH SCH (17:00)
[2016-10-01] MEDS: IPRATRPIUM/ALBUTEROL 0.5/2.5MG 3 ML NEBU. NEB SCH ×2 (17:01→19:54)
[2016-10-01 19:47] VITALS: BP 120/52
[2016-10-01] MEDS: BUDESONIDE 0.5 MG/2 ML NEBU. NEB SCH (19:54)
[2016-10-01] MEDS: CYCLOBENZAPRINE 10 MG TABLET. PO SCH (20:10)
[2016-10-01] MEDS ORDERED: NON FORMULARY ITEM (Budesonide/Formoterol Fumarate (Symbicort 160-4.5 Mcg Inhaler) 2 PUFF) IH SCH (21:00)
[2016-10-01] MEDS: LORazepam 1 MG TABLET PO PRN (21:55)
[2016-10-01 23:20] VITALS: BP 115/60
[2016-10-01] MEDS ORDERED: QUEtiapine 25 MG TABLET. PO ONE (23:30)
[2016-10-02 03:39] VITALS: BP 122/72
[2016-10-02 04:26] LABS: BASO % 0 % (0-3); EOS % 0 % (0-3); HEMATOCRIT 28.1 % (39.0-53.0); HEMOGLOBIN 10.1 g/dL (13.0-17.5); LYMPH # 0.9 x10^3/uL (1.0-4.8); LYMPH % 12 % (24-48); MEAN CORPUSCULAR HEMOGLOBIN 32 pg (25-35); MEAN CORPUSCULAR HGB CONC 36 g/dL (31-37); MEAN CORPUSCULAR VOLUME 90 fL (79-100); MONO % 8 % (0-9); NEUT % 80 % (31-73); PLATELET COUNT 245 x10^3/uL (140-400); RED BLOOD COUNT 3.13 x10^6/uL (4.30-5.70); RED CELL DISTRIBUTION WIDTH 14.2 % (11.5-14.5); WHITE BLOOD COUNT 8.2 x10^3/uL (4.0-11.0)
[2016-10-02 04:32] LABS: ALBUMIN 3.1 g/dL (3.4-5.0); ALBUMIN/GLOBULIN RATIO 0.9 (1.0-1.7); CALCIUM 8.5 mg/dL (8.5-10.1); CREATININE 0.9 mg/dL (0.7-1.3); GFR 82.5; POTASSIUM 3.3 mmol/L (3.5-5.1); TOTAL BILIRUBIN 0.2 mg/dL (0.2-1.0); TOTAL PROTEIN 6.5 g/dL (6.4-8.2)
[2016-10-02 04:35] LABS: CHOLESTEROL/HDL RATIO 4.6
[2016-10-02] MEDS: IV NORMAL SALINE 1000ML BAG 1,000 ML IV SCH (04:46)
[2016-10-02] MEDS: oxyCODONE IR 5 MG TABLET PO PRN ×2 (04:48→23:11)
[2016-10-02] MEDS: BUDESONIDE 0.5 MG/2 ML NEBU. NEB SCH ×2 (07:34→20:07)
[2016-10-02] MEDS: IPRATRPIUM/ALBUTEROL 0.5/2.5MG 3 ML NEBU. NEB SCH ×4 (07:34→20:07)
[2016-10-02] MEDS: AZITHROMYCIN 250 MG TABLET. PO SCH (07:41)
[2016-10-02] MEDS: PANTOPRAZOLE 40 MG TABLET.DR. PO SCH (07:41)
[2016-10-02] MEDS: ASPIRIN 325 MG TABLET PO SCH (07:42)
[2016-10-02] MEDS: FUROSEMIDE 40 MG TABLET. PO SCH (07:42)
[2016-10-02] MEDS: SERTRALINE 50 MG TABLET. PO SCH (07:42)
[2016-10-02] MEDS: oxyCODONE/APAP 10/325 1 TAB TABLET PO SCH ×4 (07:42→20:32)
[2016-10-02] MEDS: POTASSIUM CHLORIDE 20 MEQ TABLET.ER. PO SCH (07:43)
[2016-10-02 07:50] VITALS: BP 134/74
[2016-10-02] MEDS ORDERED: NON FORMULARY ITEM (Tiotropium Bromide (Spiriva) 1 CAP) IH SCH (09:00)
[2016-10-02] MEDS ORDERED: ASPIRIN ENTERIC COATED 81 MG TABLET.DR. PO SCH (09:00)
--- NOTE | 2016-10-02 10:17 | PDOC2 ---
NEUROLOGY CONSULT Date of Admission Date of Admission DATE: 10/02/16 TIME: 10:10 Reason for Consult Reason for Consult: Altered mental status Referring Physician Referring Physician: Dr. Lopez PCP: Dr. Ceron Source Source: Chart review, Patient History of Present Illness History of Present Illness The patient is a 76-year-old right-handed male unable to tell me why he is here. Use brought in by his for altered mental status. He does have COPD on chronic oxygen. He denies any history of stroke, seizure, or head injury. He is feeling better now. Past Medical History Cardiovascular: HTN, Hyperlipidemia Pulmonary: Bronchitis, COPD GI: GERD Psych: Depression, Panic Musculoskeletal: low back pain, Osteoarthritis ENT: Other (RIGHT hearing aid) Past Surgical History Past Surgical History: CABG, Total hip replacement ( bilateral), Total knee replacement ( left), Other ( lumbar disc, aortic valve, removal of benign lung tumor, vasectomy, shoulder) Family History Family History: Cancer Social History Social History , smokes a pack of cigarettes per day, quit tobacco Current Medications Current Medications Current Medications Sodium Chloride 1,000 ml @ 1,000 mls/hr Q1H IV Last administered on 10/01/16 07:28; Start 10/01/16 at 07:30; Stop 10/01/16 at 08:29; Status DC Sodium Chloride (Normal Saline Flush) 10 ml QSHIFT PRN IV AFTER MEDS AND BLOOD DRAWS; Start 10/01/16 at 07:15 Fentanyl Citrate (Fentanyl 2ml Vial) 50 mcg 1X ONCE IV Last administered on 07:59; Start 10/01/16 at 08:00; Stop 10/01/16 at 08:01; Status DC Albuterol/ Ipratropium (Duoneb) 3 ml 1X ONCE NEB Last administered on 10:05; Start 10/01/16 at 10:15; Stop 10/01/16 at 10:16; Status DC Methylprednisolone Sodium Succinate (SOLU-Medrol 125MG VIAL) 125 mg 1X ONCE IV Last administered on 10/01/16 10:27; Start 10/01/16 at 10:15; Stop 10/01/16 at 10:16; Status DC Azithromycin 250 ml @ 250 mls/hr 1X ONCE IV Last administered on 10/01/16 10: 27; Start 10/01/16 at 10:15; Stop 10/01/16 at 11:14; Status DC Fentanyl Citrate (Fentanyl 2ml Vial) 75 mcg 1X ONCE IV Last administered on 10:26; Start 10/01/16 at 10:15; Stop 10/01/16 at 10:16; Status DC Ondansetron HCl (Zofran) 4 mg PRN Q8HRS PRN IV NAUSEA/VOMITING; Start 10/01/16 at 10:00; Stop 10/02/16 at 09:59; Status DC Sodium Chloride 1,000 ml @ 100 mls/hr Q10H IV Last administered on 10/02/16 04 :46; Start 10/01/16 at 10:15; Stop 10/02/16 at 10:14 Acetaminophen (Tylenol) 650 mg PRN Q4HRS PRN PO FEVER; Start 10/01/16 at 10:00; Stop 10/02/16 at 09:59; Status DC Albuterol/ Ipratropium (Duoneb) 3 ml RTQID NEB Last administered on 10/01/16 13 :06; Start 10/01/16 at 12:00; Stop 10/01/16 at 15:24; Status DC Aspirin (Ecotrin) 81 mg DAILY PO ; Start 10/02/16 at 09:00; Stop 10/02/16 at 09:00 ; Status DC Furosemide (Lasix) 40 mg DAILY PO Last administered on 10/02/16 07:42; Start at 16:00 Oxycodone/ Acetaminophen (Percocet 10/325) 1 tab QID PO Last administered on 07:42; Start 10/01/16 at 17:00 Pantoprazole Sodium (Protonix) 40 mg DAILYAC PO Last administered on 10/02/16 07:41; Start 10/01/16 at 16:00 Sertraline HCl (Zoloft) 100 mg DAILY PO Last administered on 10/02/16 07:42; Start 10/01/16 at 16:00 Warfarin Sodium (Coumadin) 5 mg DAILY16 PO Last administered on 10/01/16 16:26 ; Start 10/01/16 at 16:00 Non-Formulary Medication 2 puff QID IH ; Start 10/01/16 at 17:00; Status UNV Non-Formulary Medication 2 puff BID IH ; Start 10/01/16 at 21:00; Status UNV Cyclobenzaprine HCl (Flexeril) 5 mg QHS PO Last administered on 10/01/16 20:10 ; Start 10/01/16 at 21:00 Potassium Chloride (Klor-Con) 20 meq DAILYWBKFT PO Last administered on 07:43; Start 10/02/16 at 08:00 Non-Formulary Medication 1 cap DAILY IH ; Start 10/02/16 at 09:00; Status UNV Lorazepam (Ativan) 1 mg PRN Q6HRS PRN PO ANXIETY / AGITATION Last administered on 10/01/16 21:55; Start 10/01/16 at 15:15 Ketorolac Tromethamine (Toradol) 15 mg 1X ONCE IV Last administered on 16:24; Start 10/01/16 at 15:30; Stop 10/01/16 at 15:31; Status DC Budesonide (Pulmicort) 0.5 mg RTBID NEB Last administered on 10/02/16 07:34; Start 10/01/16 at 20:00 Warfarin Sodium (Coumadin Per Physician) 1 each PRN DAILY PRN MC SEE COMMENTS; Start 10/01/16 at 15:30 Albuterol/ Ipratropium (Duoneb) 3 ml RTQID NEB Last administered on 10/02/16 07 :34; Start 10/01/16 at 16:00 Azithromycin (Zithromax) 250 mg DAILY PO Last administered on 10/02/16 07:41; Start 10/02/16 at 09:00 Aspirin (Christine Aspirin) 325 mg DAILYWBKFT PO Last administered on 10/02/16 07: 42; Start 10/02/16 at 08:00 Aspirin (Christine Aspirin) 325 mg 1X ONCE PO Last administered on 10/01/16 16:25 ; Start 10/01/16 at 16:15; Stop 10/01/16 at 16:16; Status DC Quetiapine Fumarate (SEROquel) 50 mg 1X ONCE PO Last administered on 10/02/16 00:16; Start 10/01/16 at 23:30; Stop 10/01/16 at 23:31; Status DC Oxycodone HCl (Roxicodone) 10 mg PRN Q3HRS PRN PO SEVERE PAIN Last administered on 10/02/16t 04:48; Start 10/02/16 at 04:30 Active Scripts Active Reported Furosemide 40 Mg Tablet 1 Tab PO DAILY Pantoprazole Sodium 40 Mg Tablet.dr 1 Tab PO DAILY Potassium Chloride 20 Meq Tablet.er 20 Meq PO DAILY Warfarin Sodium 5 Mg Tablet 1 Tab PO DAILY Ativan (Lorazepam) 2 Mg Tablet 2 Mg PO TID Spiriva (Tiotropium [place]) 18 Mcg Cap.w.dev 1 Cap IH DAILY Proventil Hfa Inhaler (Albuterol Sulfate) 6.7 Gm Hfa.aer.ad 2 Puff IH QID Cyclobenzaprine Hcl 5 Mg Tablet 1 Tab PO HS Symbicort 160-4.5 Mcg Inhaler (Budesonide/Formoterol Fumarate) 10.2 Gm Hfa.aer.ad 2 Puff IH BID Sertraline Hcl 50 Mg Tablet 100 Mg PO DAILY Zinc 50 Mg Tablet 50 Mg PO Vitamin B Complex 1 Each Capsule 1 Each PO Vitamin E 400 Unit Capsule 400 Unit PO Aspirin Ec (Aspirin) 81 Mg Tablet.dr 1 Tab PO DAILY Fish Oil Ec 1,200 Mg Softgel (Powers-3S/Dha/Epa/Fish Oil) 1 Each Capsule.dr 1 Each PO Oxycodone-Acetaminophen 10-325 (Oxycodone Hcl/Acetaminophen) 1 Each Tablet 1 Tab PO QID Allergies Allergies: Coded Allergies: ciprofloxacin (Verified Allergy, Intermediate, SKIN PEELS, 12/03/14) pentazocine (Verified Allergy, Intermediate, NERVOUS, 12/03/14) I S O L A T I O N *CONTACT* (Verified Allergy, Unknown, 06/11/14) mrsa + ROS Review of System Negative for fevers, chills, weight loss, chest pain, indigestion, hematochezia , melena, dysuria. Does have dyspnea. Full 14-point review systems is negative. Physical Exam Physical Examination PHYSICAL EXAMINATION: Vital signs: see above. General appearance is normal and in no acute distress. HEENT: Normocephalic and nontraumatic. Eyes, nose, ears, and throat are unremarkable. Neck is supple. No lymphadenopathy. No bruits are heard over the carotid artery. No crepitus. NEUROLOGICAL EXAMINATION: Mental Status Examination: Alert. He is hard of hearing, does know location but is not sure of the date. There is no dysnomia. Answers questions and follows commends. Pupils are equal round and reactive to light and accommodation. Extraocular movements are intact. Visual field exam shows no defect on the direct confrontation. No motor or sensory deficits on the facial exam. Uvula in the midline and the soft palate elevated symmetrically. No deviation of the tongue to any direction. Gross hearing is normal. Shoulder shrug normal. Muscle tone is normal. Muscle strength is 5. Deep tendon reflexes are 1+ all around. Plantar reflex is with flexion response bilaterally. [id number] test performance is accurate. Alternative movements are accurate. Gait is normal. Sensory exam shows no deficits. No cerebellar signs are elicited. Vitals VITALS Vital Signs Date Time Temp Pulse Resp B/P (MAP) Pulse Ox O2 Delivery O2 Flow Rate FiO2 10/02/16 09:02 Nasal Cannula 2.0 10/02/16 07:50 98.1 92 18 134/74 (94) 95 98.1 Labs Labs Laboratory Tests Test 10/01/16 07:00 10/01/16 08:00 10/01/16 09:04 10/01/16 16:55 White Blood Count 6.7 x10^3/uL (4.0-11.0) Red Blood Count 4.31 x10^6/uL (4.30-5.70) Hemoglobin 13.2 g/dL (13.0-17.5) Hematocrit 39.9 % (39.0-53.0) Mean Corpuscular Volume 93 fL (79-100) Mean Corpuscular Hemoglobin 31 pg (25-35) Mean Corpuscular Hemoglobin Concent 33 g/dL (31-37) Red Cell Distribution Width 14.3 % (11.5-14.5) Platelet Count 327 x10^3/uL (140-400) Neutrophils (%) (Auto) 65 % (31-73) Lymphocytes (%) (Auto) 18 % (24-48) Monocytes (%) (Auto) 11 % (0-9) Eosinophils (%) (Auto) 6 % (0-3) Basophils (%) (Auto) 1 % (0-3) Neutrophils # (Auto) 4.4 x10^3uL (1.8-7.7) Lymphocytes # (Auto) 1.2 x10^3/uL (1.0-4.8) Monocytes # (Auto) 0.7 x10^3/uL (0.0-1.1) Eosinophils # (Auto) 0.4 x10^3/uL (0.0-0.7) Basophils # (Auto) 0.0 x10^3/uL (0.0-0.2) Prothrombin Time 25.0 SEC (11.7-14.0) Prothromb Time International Ratio 2.4 (0.8-1.1) Activated Partial Thromboplast Time 54 SEC (24-38) Sodium Level 141 mmol/L (136-145) Potassium Level 3.6 mmol/L (3.5-5.1) Chloride Level 105 mmol/L (98-107) Carbon Dioxide Level 28 mmol/L (21-32) Anion Gap 8 (6-14) Blood Urea Nitrogen 9 mg/dL (8-26) Creatinine 0.7 mg/dL (0.7-1.3) Estimated GFR (Cockcroft-Gault) 110.2 Glucose Level 107 mg/dL (70-99) Lactic Acid Level 0.4 mmol/L (0.4-2.0) Calcium Level 8.6 mg/dL (8.5-10.1) Magnesium Level 2.1 mg/dL (1.8-2.4) Total Bilirubin 0.5 mg/dL (0.2-1.0) Direct Bilirubin 0.1 mg/dL (0.0-0.2) Aspartate Amino Transf (AST/SGOT) 24 U/L (15-37) Alanine Aminotransferase (ALT/SGPT) 24 U/L (16-63) Alkaline Phosphatase 137 U/L (46-116) Ammonia 18 mcmol/L (11-34) Creatine Kinase 50 U/L (39-308) Creatine Kinase MB (Mass) 0.7 ng/mL (0.0-3.6) Creatine Kinase MB Relative Index % (0-4) Troponin I Quantitative < 0.017 ng/mL (0.000-0.055) < 0.017 ng/mL (0.000-0.055) NZ-Zcc-R-Type Natriuretic Peptide 574 pg/mL (0-124) Total Protein 7.0 g/dL (6.4-8.2) Albumin 3.3 g/dL (3.4-5.0) Thyroid Stimulating Hormone (TSH) 0.538 uIU/mL (0.358-3.74) Urine Collection Type Unknown Urine Color Yellow Urine Clarity Clear Urine pH 7.5 Urine Specific [place] 1.015 Urine Protein Negative mg/dL (NEG-TRACE) Urine Glucose (UA) Negative mg/dL (NEG) Urine Ketones (Stick) Negative mg/dL (NEG) Urine Blood Negative (NEG) Urine Nitrite Negative (NEG) Urine Bilirubin Negative (NEG) Urine Urobilinogen Dipstick 0.2 mg/dL (0.2 mg/dL) Urine Leukocyte Esterase Negative (NEG) Urine RBC 6-10 /HPF (0-2) Urine WBC 1-4 /HPF (0-4) Urine Squamous Epithelial Cells Mod /LPF Urine Bacteria Few /HPF (0-FEW) Test 10/01/16 22:05 10/02/16 03:45 Troponin I Quantitative < 0.017 ng/mL (0.000-0.055) White Blood Count 8.2 x10^3/uL (4.0-11.0) Red Blood Count 3.13 x10^6/uL (4.30-5.70) Hemoglobin 10.1 g/dL (13.0-17.5) Hematocrit 28.1 % (39.0-53.0) Mean Corpuscular Volume 90 fL (79-100) Mean Corpuscular Hemoglobin 32 pg (25-35) Mean Corpuscular Hemoglobin Concent 36 g/dL (31-37) Red Cell Distribution Width 14.2 % (11.5-14.5) Platelet Count 245 x10^3/uL (140-400) Neutrophils (%) (Auto) 80 % (31-73) Lymphocytes (%) (Auto) 12 % (24-48) Monocytes (%) (Auto) 8 % (0-9) Eosinophils (%) (Auto) 0 % (0-3) Basophils (%) (Auto) 0 % (0-3) Neutrophils # (Auto) 6.6 x10^3uL (1.8-7.7) Lymphocytes # (Auto) 0.9 x10^3/uL (1.0-4.8) Monocytes # (Auto) 0.7 x10^3/uL (0.0-1.1) Eosinophils # (Auto) 0.0 x10^3/uL (0.0-0.7) Basophils # (Auto) 0.0 x10^3/uL (0.0-0.2) Sodium Level 142 mmol/L (136-145) Potassium Level 3.3 mmol/L (3.5-5.1) Chloride Level 105 mmol/L (98-107) Carbon Dioxide Level 27 mmol/L (21-32) Anion Gap 10 (6-14) Blood Urea Nitrogen 13 mg/dL (8-26) Creatinine 0.9 mg/dL (0.7-1.3) Estimated GFR (Cockcroft-Gault) 82.5 BUN/Creatinine Ratio 14 (6-20) Glucose Level 91 mg/dL (70-99) Calcium Level 8.5 mg/dL (8.5-10.1) Total Bilirubin 0.2 mg/dL (0.2-1.0) Aspartate Amino Transf (AST/SGOT) 18 U/L (15-37) Alanine Aminotransferase (ALT/SGPT) 18 U/L (16-63) Alkaline Phosphatase 126 U/L (46-116) Total Protein 6.5 g/dL (6.4-8.2) Albumin 3.1 g/dL (3.4-5.0) Albumin/Globulin Ratio 0.9 (1.0-1.7) Triglycerides Level 58 mg/dL (0-150) Cholesterol Level 151 mg/dL (0-200) LDL Cholesterol, Calculated 106 mg/dL (0-100) VLDL Cholesterol, Calculated 12 mg/dL (0-40) Non-HDL Cholesterol Calculated 118 mg/dL (0-129) HDL Cholesterol 33 mg/dL (40-60) Cholesterol/HDL Ratio 4.6 Laboratory Tests Test 10/01/16 16:55 10/01/16 22:05 10/02/16 03:45 Troponin I Quantitative < 0.017 ng/mL (0.000-0.055) < 0.017 ng/mL (0.000-0.055) White Blood Count 8.2 x10^3/uL (4.0-11.0) Red Blood Count 3.13 x10^6/uL (4.30-5.70) Hemoglobin 10.1 g/dL (13.0-17.5) Hematocrit 28.1 % (39.0-53.0) Mean Corpuscular Volume 90 fL (79-100) Mean Corpuscular Hemoglobin 32 pg (25-35) Mean Corpuscular Hemoglobin Concent 36 g/dL (31-37) Red Cell Distribution Width 14.2 % (11.5-14.5) Platelet Count 245 x10^3/uL (140-400) Neutrophils (%) (Auto) 80 % (31-73) Lymphocytes (%) (Auto) 12 % (24-48) Monocytes (%) (Auto) 8 % (0-9) Eosinophils (%) (Auto) 0 % (0-3) Basophils (%) (Auto) 0 % (0-3) Neutrophils # (Auto) 6.6 x10^3uL (1.8-7.7) Lymphocytes # (Auto) 0.9 x10^3/uL (1.0-4.8) Monocytes # (Auto) 0.7 x10^3/uL (0.0-1.1) Eosinophils # (Auto) 0.0 x10^3/uL (0.0-0.7) Basophils # (Auto) 0.0 x10^3/uL (0.0-0.2) Sodium Level 142 mmol/L (136-145) Potassium Level 3.3 mmol/L (3.5-5.1) Chloride Level 105 mmol/L (98-107) Carbon Dioxide Level 27 mmol/L (21-32) Anion Gap 10 (6-14) Blood Urea Nitrogen 13 mg/dL (8-26) Creatinine 0.9 mg/dL (0.7-1.3) Estimated GFR (Cockcroft-Gault) 82.5 BUN/Creatinine Ratio 14 (6-20) Glucose Level 91 mg/dL (70-99) Calcium Level 8.5 mg/dL (8.5-10.1) Total Bilirubin 0.2 mg/dL (0.2-1.0) Aspartate Amino Transf (AST/SGOT) 18 U/L (15-37) Alanine Aminotransferase (ALT/SGPT) 18 U/L (16-63) Alkaline Phosphatase 126 U/L (46-116) Total Protein 6.5 g/dL (6.4-8.2) Albumin 3.1 g/dL (3.4-5.0) Albumin/Globulin Ratio 0.9 (1.0-1.7) Triglycerides Level 58 mg/dL (0-150) Cholesterol Level 151 mg/dL (0-200) LDL Cholesterol, Calculated 106 mg/dL (0-100) VLDL Cholesterol, Calculated 12 mg/dL (0-40) Non-HDL Cholesterol Calculated 118 mg/dL (0-129) HDL Cholesterol 33 mg/dL (40-60) Cholesterol/HDL Ratio 4.[address] head: The calvarium appears unremarkable. There is a low-density mass occupying the frontal sinuses and extending into the ethmoid air cells. This is unchanged relative to the previous CT examination and is well represented on a MRI 01/05/2012 and likely patient account representative of a chronic mucocele. There is partial opacification of the left maxillary sinus. Focal10 sinusitis is not excluded. The sphenoid sinus appears unremarkable as does the right maxillary sinus There is no subdural or epidural hematoma. There is no mass or midline shift. No hemorrhage is seen. No acute intracranial finding is apparent. IMPRESSION: No acute intracranial finding Assessment/Plan Assessment/Plan Impression: Metabolic encephalopathy, may be hypoxic, rule out other causes. Suspect prior dementia. CT head shows only chronic mucocele. Recommendations: Laboratory studies including ABG ordered Treat medical diseases. Thank you for letting me help the patient's care. RIKY RAMÍREZ MD Oct 02, 2016 10:16
[2016-10-02 11:25] VITALS: BP 119/57
[2016-10-02] MEDS ORDERED: POTASSIUM CHLORIDE 20 MEQ TABLET.ER. PO ONE (12:30)
--- NOTE | 2016-10-02 12:32 | PDOC ---
PROGRESS NOTES Chief Complaint Chief Complaint Assessment/Plan confusion, metabolic encephalopathy probably undiagnosed dementia, hx dementia COPD, chronic stable GEn weakness, mult joint pain, hips, knees, back with OA and mult fractures weakness and debility and falls, afib, chronic diastolic CHF, not on AC, high fall risk HArd of hearing History of Present Illness History of Present Illness Up in chair VERy PICAYUNE, no complaints DTr at bedside, no issues, just weak Neuro note reviewed, no further neuro tests - I agree MUtliple aches and pains mostly, all chronic PHysiatry has ordered xrays pLAN: PT/OT - BERTHA christopher for now (has high functionality for SNU at this time) Await xrays See how he does with PT kemar Dw pt and dtr Vitals Vitals Vital Signs Date Time Temp Pulse Resp B/P (MAP) Pulse Ox O2 Delivery O2 Flow Rate FiO2 10/02/16 11:39 Nasal Cannula 2.0 10/02/16 11:25 98.4 85 18 119/57 (77) 92 98.4 Physical Exam General: Alert, Oriented X3, Cooperative, No acute distress Heart: Normal S1, Normal S2, Other (irreg rate and rhythm) Lungs: Other Abdomen: Normal bowel sounds Extremities: No clubbing, No cyanosis, No edema, Normal pulses Skin: No rashes, No breakdown, No significant lesion Labs LABS Laboratory Tests Test 10/01/16 16:55 10/01/16 22:05 10/02/16 03:45 Troponin I Quantitative < 0.017 ng/mL (0.000-0.055) < 0.017 ng/mL (0.000-0.055) White Blood Count 8.2 x10^3/uL (4.0-11.0) Red Blood Count 3.13 x10^6/uL (4.30-5.70) Hemoglobin 10.1 g/dL (13.0-17.5) Hematocrit 28.1 % (39.0-53.0) Mean Corpuscular Volume 90 fL (79-100) Mean Corpuscular Hemoglobin 32 pg (25-35) Mean Corpuscular Hemoglobin Concent 36 g/dL (31-37) Red Cell Distribution Width 14.2 % (11.5-14.5) Platelet Count 245 x10^3/uL (140-400) Neutrophils (%) (Auto) 80 % (31-73) Lymphocytes (%) (Auto) 12 % (24-48) Monocytes (%) (Auto) 8 % (0-9) Eosinophils (%) (Auto) 0 % (0-3) Basophils (%) (Auto) 0 % (0-3) Neutrophils # (Auto) 6.6 x10^3uL (1.8-7.7) Lymphocytes # (Auto) 0.9 x10^3/uL (1.0-4.8) Monocytes # (Auto) 0.7 x10^3/uL (0.0-1.1) Eosinophils # (Auto) 0.0 x10^3/uL (0.0-0.7) Basophils # (Auto) 0.0 x10^3/uL (0.0-0.2) Sodium Level 142 mmol/L (136-145) Potassium Level 3.3 mmol/L (3.5-5.1) Chloride Level 105 mmol/L (98-107) Carbon Dioxide Level 27 mmol/L (21-32) Anion Gap 10 (6-14) Blood Urea Nitrogen 13 mg/dL (8-26) Creatinine 0.9 mg/dL (0.7-1.3) Estimated GFR (Cockcroft-Gault) 82.5 BUN/Creatinine Ratio 14 (6-20) Glucose Level 91 mg/dL (70-99) Calcium Level 8.5 mg/dL (8.5-10.1) Total Bilirubin 0.2 mg/dL (0.2-1.0) Aspartate Amino Transf (AST/SGOT) 18 U/L (15-37) Alanine Aminotransferase (ALT/SGPT) 18 U/L (16-63) Alkaline Phosphatase 126 U/L (46-116) Total Protein 6.5 g/dL (6.4-8.2) Albumin 3.1 g/dL (3.4-5.0) Albumin/Globulin Ratio 0.9 (1.0-1.7) Triglycerides Level 58 mg/dL (0-150) Cholesterol Level 151 mg/dL (0-200) LDL Cholesterol, Calculated 106 mg/dL (0-100) VLDL Cholesterol, Calculated 12 mg/dL (0-40) Non-HDL Cholesterol Calculated 118 mg/dL (0-129) HDL Cholesterol 33 mg/dL (40-60) Cholesterol/HDL Ratio 4.6 Review of Systems Review of Systems limted, PICAYUNE, chronic back pain, knee pain, hip pain Assessment and Plan Assessmemt and Plan Problems Medical Problems: (1) Acute and chronic respiratory failure ([id number]) Status: Acute (2) Altered mental status Status: Acute (3) COPD exacerbation Status: Acute (4) TIA (transient ischemic attack) Status: Acute Problems: Comment Review of Relevant I have reviewed the following items guido (where applicable) has been applied. Labs Laboratory Tests Test 10/01/16 07:00 10/01/16 08:00 10/01/16 09:04 10/01/16 16:55 White Blood Count 6.7 x10^3/uL (4.0-11.0) Red Blood Count 4.31 x10^6/uL (4.30-5.70) Hemoglobin 13.2 g/dL (13.0-17.5) Hematocrit 39.9 % (39.0-53.0) Mean Corpuscular Volume 93 fL (79-100) Mean Corpuscular Hemoglobin 31 pg (25-35) Mean Corpuscular Hemoglobin Concent 33 g/dL (31-37) Red Cell Distribution Width 14.3 % (11.5-14.5) Platelet Count 327 x10^3/uL (140-400) Neutrophils (%) (Auto) 65 % (31-73) Lymphocytes (%) (Auto) 18 % (24-48) Monocytes (%) (Auto) 11 % (0-9) Eosinophils (%) (Auto) 6 % (0-3) Basophils (%) (Auto) 1 % (0-3) Neutrophils # (Auto) 4.4 x10^3uL (1.8-7.7) Lymphocytes # (Auto) 1.2 x10^3/uL (1.0-4.8) Monocytes # (Auto) 0.7 x10^3/uL (0.0-1.1) Eosinophils # (Auto) 0.4 x10^3/uL (0.0-0.7) Basophils # (Auto) 0.0 x10^3/uL (0.0-0.2) Prothrombin Time 25.0 SEC (11.7-14.0) Prothromb Time International Ratio 2.4 (0.8-1.1) Activated Partial Thromboplast Time 54 SEC (24-38) Sodium Level 141 mmol/L (136-145) Potassium Level 3.6 mmol/L (3.5-5.1) Chloride Level 105 mmol/L (98-107) Carbon Dioxide Level 28 mmol/L (21-32) Anion Gap 8 (6-14) Blood Urea Nitrogen 9 mg/dL (8-26) Creatinine 0.7 mg/dL (0.7-1.3) Estimated GFR (Cockcroft-Gault) 110.2 Glucose Level 107 mg/dL (70-99) Lactic Acid Level 0.4 mmol/L (0.4-2.0) Calcium Level 8.6 mg/dL (8.5-10.1) Magnesium Level 2.1 mg/dL (1.8-2.4) Total Bilirubin 0.5 mg/dL (0.2-1.0) Direct Bilirubin 0.1 mg/dL (0.0-0.2) Aspartate Amino Transf (AST/SGOT) 24 U/L (15-37) Alanine Aminotransferase (ALT/SGPT) 24 U/L (16-63) Alkaline Phosphatase 137 U/L (46-116) Ammonia 18 mcmol/L (11-34) Creatine Kinase 50 U/L (39-308) Creatine Kinase MB (Mass) 0.7 ng/mL (0.0-3.6) Creatine Kinase MB Relative Index % (0-4) Troponin I Quantitative < 0.017 ng/mL (0.000-0.055) < 0.017 ng/mL (0.000-0.055) CO-Iyz-D-Type Natriuretic Peptide 574 pg/mL (0-124) Total Protein 7.0 g/dL (6.4-8.2) Albumin 3.3 g/dL (3.4-5.0) Thyroid Stimulating Hormone (TSH) 0.538 uIU/mL (0.358-3.74) Urine Collection Type Unknown Urine Color Yellow Urine Clarity Clear Urine pH 7.5 Urine Specific [place] 1.015 Urine Protein Negative mg/dL (NEG-TRACE) Urine Glucose (UA) Negative mg/dL (NEG) Urine Ketones (Stick) Negative mg/dL (NEG) Urine Blood Negative (NEG) Urine Nitrite Negative (NEG) Urine Bilirubin Negative (NEG) Urine Urobilinogen Dipstick 0.2 mg/dL (0.2 mg/dL) Urine Leukocyte Esterase Negative (NEG) Urine RBC 6-10 /HPF (0-2) Urine WBC 1-4 /HPF (0-4) Urine Squamous Epithelial Cells Mod /LPF Urine Bacteria Few /HPF (0-FEW) Test 10/01/16 22:05 10/02/16 03:45 Troponin I Quantitative < 0.017 ng/mL (0.000-0.055) White Blood Count 8.2 x10^3/uL (4.0-11.0) Red Blood Count 3.13 x10^6/uL (4.30-5.70) Hemoglobin 10.1 g/dL (13.0-17.5) Hematocrit 28.1 % (39.0-53.0) Mean Corpuscular Volume 90 fL (79-100) Mean Corpuscular Hemoglobin 32 pg (25-35) Mean Corpuscular Hemoglobin Concent 36 g/dL (31-37) Red Cell Distribution Width 14.2 % (11.5-14.5) Platelet Count 245 x10^3/uL (140-400) Neutrophils (%) (Auto) 80 % (31-73) Lymphocytes (%) (Auto) 12 % (24-48) Monocytes (%) (Auto) 8 % (0-9) Eosinophils (%) (Auto) 0 % (0-3) Basophils (%) (Auto) 0 % (0-3) Neutrophils # (Auto) 6.6 x10^3uL (1.8-7.7) Lymphocytes # (Auto) 0.9 x10^3/uL (1.0-4.8) Monocytes # (Auto) 0.7 x10^3/uL (0.0-1.1) Eosinophils # (Auto) 0.0 x10^3/uL (0.0-0.7) Basophils # (Auto) 0.0 x10^3/uL (0.0-0.2) Sodium Level 142 mmol/L (136-145) Potassium Level 3.3 mmol/L (3.5-5.1) Chloride Level 105 mmol/L (98-107) Carbon Dioxide Level 27 mmol/L (21-32) Anion Gap 10 (6-14) Blood Urea Nitrogen 13 mg/dL (8-26) Creatinine 0.9 mg/dL (0.7-1.3) Estimated GFR (Cockcroft-Gault) 82.5 BUN/Creatinine Ratio 14 (6-20) Glucose Level 91 mg/dL (70-99) Calcium Level 8.5 mg/dL (8.5-10.1) Total Bilirubin 0.2 mg/dL (0.2-1.0) Aspartate Amino Transf (AST/SGOT) 18 U/L (15-37) Alanine Aminotransferase (ALT/SGPT) 18 U/L (16-63) Alkaline Phosphatase 126 U/L (46-116) Total Protein 6.5 g/dL (6.4-8.2) Albumin 3.1 g/dL (3.4-5.0) Albumin/Globulin Ratio 0.9 (1.0-1.7) Triglycerides Level 58 mg/dL (0-150) Cholesterol Level 151 mg/dL (0-200) LDL Cholesterol, Calculated 106 mg/dL (0-100) VLDL Cholesterol, Calculated 12 mg/dL (0-40) Non-HDL Cholesterol Calculated 118 mg/dL (0-129) HDL Cholesterol 33 mg/dL (40-60) Cholesterol/HDL Ratio 4.6 Laboratory Tests Test 10/01/16 16:55 10/01/16 22:05 10/02/16 03:45 Troponin I Quantitative < 0.017 ng/mL (0.000-0.055) < 0.017 ng/mL (0.000-0.055) White Blood Count 8.2 x10^3/uL (4.0-11.0) Red Blood Count 3.13 x10^6/uL (4.30-5.70) Hemoglobin 10.1 g/dL (13.0-17.5) Hematocrit 28.1 % (39.0-53.0) Mean Corpuscular Volume 90 fL (79-100) Mean Corpuscular Hemoglobin 32 pg (25-35) Mean Corpuscular Hemoglobin Concent 36 g/dL (31-37) Red Cell Distribution Width 14.2 % (11.5-14.5) Platelet Count 245 x10^3/uL (140-400) Neutrophils (%) (Auto) 80 % (31-73) Lymphocytes (%) (Auto) 12 % (24-48) Monocytes (%) (Auto) 8 % (0-9) Eosinophils (%) (Auto) 0 % (0-3) Basophils (%) (Auto) 0 % (0-3) Neutrophils # (Auto) 6.6 x10^3uL (1.8-7.7) Lymphocytes # (Auto) 0.9 x10^3/uL (1.0-4.8) Monocytes # (Auto) 0.7 x10^3/uL (0.0-1.1) Eosinophils # (Auto) 0.0 x10^3/uL (0.0-0.7) Basophils # (Auto) 0.0 x10^3/uL (0.0-0.2) Sodium Level 142 mmol/L (136-145) Potassium Level 3.3 mmol/L (3.5-5.1) Chloride Level 105 mmol/L (98-107) Carbon Dioxide Level 27 mmol/L (21-32) Anion Gap 10 (6-14) Blood Urea Nitrogen 13 mg/dL (8-26) Creatinine 0.9 mg/dL (0.7-1.3) Estimated GFR (Cockcroft-Gault) 82.5 BUN/Creatinine Ratio 14 (6-20) Glucose Level 91 mg/dL (70-99) Calcium Level 8.5 mg/dL (8.5-10.1) Total Bilirubin 0.2 mg/dL (0.2-1.0) Aspartate Amino Transf (AST/SGOT) 18 U/L (15-37) Alanine Aminotransferase (ALT/SGPT) 18 U/L (16-63) Alkaline Phosphatase 126 U/L (46-116) Total Protein 6.5 g/dL (6.4-8.2) Albumin 3.1 g/dL (3.4-5.0) Albumin/Globulin Ratio 0.9 (1.0-1.7) Triglycerides Level 58 mg/dL (0-150) Cholesterol Level 151 mg/dL (0-200) LDL Cholesterol, Calculated 106 mg/dL (0-100) VLDL Cholesterol, Calculated 12 mg/dL (0-40) Non-HDL Cholesterol Calculated 118 mg/dL (0-129) HDL Cholesterol 33 mg/dL (40-60) Cholesterol/HDL Ratio 4.6 Microbiology 10/01/16 Blood Culture - Preliminary, Resulted NO GROWTH AFTER 1 DAY Medications Current Medications Sodium Chloride 1,000 ml @ 1,000 mls/hr Q1H IV Last administered on 10/01/16 07:28; Start 10/01/16 at 07:30; Stop 10/01/16 at 08:29; Status DC Sodium Chloride (Normal Saline Flush) 10 ml QSHIFT PRN IV AFTER MEDS AND BLOOD DRAWS; Start 10/01/16 at 07:15 Fentanyl Citrate (Fentanyl 2ml Vial) 50 mcg 1X ONCE IV Last administered on 07:59; Start 10/01/16 at 08:00; Stop 10/01/16 at 08:01; Status DC Albuterol/ Ipratropium (Duoneb) 3 ml 1X ONCE NEB Last administered on 10:05; Start 10/01/16 at 10:15; Stop 10/01/16 at 10:16; Status DC Methylprednisolone Sodium Succinate (SOLU-Medrol 125MG VIAL) 125 mg 1X ONCE IV Last administered on 10/01/16 10:27; Start 10/01/16 at 10:15; Stop 10/01/16 at 10:16; Status DC Azithromycin 250 ml @ 250 mls/hr 1X ONCE IV Last administered on 10/01/16 10: 27; Start 10/01/16 at 10:15; Stop 10/01/16 at 11:14; Status DC Fentanyl Citrate (Fentanyl 2ml Vial) 75 mcg 1X ONCE IV Last administered on 10:26; Start 10/01/16 at 10:15; Stop 10/01/16 at 10:16; Status DC Ondansetron HCl (Zofran) 4 mg PRN Q8HRS PRN IV NAUSEA/VOMITING; Start 10/01/16 at 10:00; Stop 10/02/16 at 09:59; Status DC Sodium Chloride 1,000 ml @ 100 mls/hr Q10H IV Last administered on 10/02/16 04 :46; Start 10/01/16 at 10:15; Stop 10/02/16 at 10:14; Status DC Acetaminophen (Tylenol) 650 mg PRN Q4HRS PRN PO FEVER; Start 10/01/16 at 10:00; Stop 10/02/16 at 09:59; Status DC Albuterol/ Ipratropium (Duoneb) 3 ml RTQID NEB Last administered on 10/01/16 13 :06; Start 10/01/16 at 12:00; Stop 10/01/16 at 15:24; Status DC Aspirin (Ecotrin) 81 mg DAILY PO ; Start 10/02/16 at 09:00; Stop 10/02/16 at 09:00 ; Status DC Furosemide (Lasix) 40 mg DAILY PO Last administered on 10/02/16 07:42; Start at 16:00 Oxycodone/ Acetaminophen (Percocet 10/325) 1 tab QID PO Last administered on 11:39; Start 10/01/16 at 17:00 Pantoprazole Sodium (Protonix) 40 mg DAILYAC PO Last administered on 10/02/16 07:41; Start 10/01/16 at 16:00 Sertraline HCl (Zoloft) 100 mg DAILY PO Last administered on 10/02/16 07:42; Start 10/01/16 at 16:00 Warfarin Sodium (Coumadin) 5 mg DAILY16 PO Last administered on 10/01/16 16:26 ; Start 10/01/16 at 16:00 Non-Formulary Medication 2 puff QID IH ; Start 10/01/16 at 17:00; Status UNV Non-Formulary Medication 2 puff BID IH ; Start 10/01/16 at 21:00; Status UNV Cyclobenzaprine HCl (Flexeril) 5 mg QHS PO Last administered on 10/01/16 20:10 ; Start 10/01/16 at 21:00 Potassium Chloride (Klor-Con) 20 meq DAILYWBKFT PO Last administered on 07:43; Start 10/02/16 at 08:00 Non-Formulary Medication 1 cap DAILY IH ; Start 10/02/16 at 09:00; Status UNV Lorazepam (Ativan) 1 mg PRN Q6HRS PRN PO ANXIETY / AGITATION Last administered on 10/01/16 21:55; Start 10/01/16 at 15:15 Ketorolac Tromethamine (Toradol) 15 mg 1X ONCE IV Last administered on 16:24; Start 10/01/16 at 15:30; Stop 10/01/16 at 15:31; Status DC Budesonide (Pulmicort) 0.5 mg RTBID NEB Last administered on 10/02/16 07:34; Start 10/01/16 at 20:00 Warfarin Sodium (Coumadin Per Physician) 1 each PRN DAILY PRN MC SEE COMMENTS Last administered on 10/02/16 11:50; Start 10/01/16 at 15:30 Albuterol/ Ipratropium (Duoneb) 3 ml RTQID NEB Last administered on 10/02/16 11 :15; Start 10/01/16 at 16:00 Azithromycin (Zithromax) 250 mg DAILY PO Last administered on 10/02/16 07:41; Start 10/02/16 at 09:00 Aspirin (TOMODO Aspirin) 325 mg DAILYWBKFT PO Last administered on 10/02/16 07: 42; Start 10/02/16 at 08:00 Aspirin (TOMODO Aspirin) 325 mg 1X ONCE PO Last administered on 10/01/16 16:25 ; Start 10/01/16 at 16:15; Stop 10/01/16 at 16:16; Status DC Quetiapine Fumarate (SEROquel) 50 mg 1X ONCE PO Last administered on 10/02/16 00:16; Start 10/01/16 at 23:30; Stop 10/01/16 at 23:31; Status DC Oxycodone HCl (Roxicodone) 10 mg PRN Q3HRS PRN PO SEVERE PAIN Last administered on 10/02/16 04:48; Start 10/02/16 at 04:30 Potassium Chloride (Klor-Con) 40 meq 1X ONCE PO ; Start 10/02/16 at 12:30; Stop 10/02/16 at 12:31 Active Scripts Active Reported Furosemide 40 Mg Tablet 1 Tab PO DAILY Pantoprazole Sodium 40 Mg Tablet.dr 1 Tab PO DAILY Potassium Chloride 20 Meq Tablet.er 20 Meq PO DAILY Warfarin Sodium 5 Mg Tablet 1 Tab PO DAILY Ativan (Lorazepam) 2 Mg Tablet 2 Mg PO TID Spiriva (Tiotropium [place]) 18 Mcg Cap.w.dev 1 Cap IH DAILY Proventil Hfa Inhaler (Albuterol Sulfate) 6.7 Gm Hfa.aer.ad 2 Puff IH QID Cyclobenzaprine Hcl 5 Mg Tablet 1 Tab PO HS Symbicort 160-4.5 Mcg Inhaler (Budesonide/Formoterol Fumarate) 10.2 Gm Hfa.aer.ad 2 Puff IH BID Sertraline Hcl 50 Mg Tablet 100 Mg PO DAILY Zinc 50 Mg Tablet 50 Mg PO Vitamin B Complex 1 Each Capsule 1 Each PO Vitamin E 400 Unit Capsule 400 Unit PO Aspirin Ec (Aspirin) 81 Mg Tablet. 1 Tab PO DAILY Fish Oil Ec 1,200 Mg Softgel ([place]-3S/Dha/Epa/Fish Oil) 1 Each Capsule. 1 Each PO Oxycodone-Acetaminophen 10-325 (Oxycodone Hcl/Acetaminophen) 1 Each Tablet 1 Tab PO QID Vitals/I & O Vital Sign - Last 24 Hours 10/01/16 10/01/16 10/01/16 10/01/16 13:11 14:35 17:03 18:28 Temp 98.3 98.3 Pulse 99 Resp 20 B/P (MAP) 124/63 (83) Pulse Ox 95 96 O2 Delivery Nasal Cannula Nasal Cannula Nasal Cannula Nasal Cannula O2 Flow Rate 2.0 2.0 2.0 2.0 10/01/16 10/01/16 10/01/16 10/01/16 19:47 19:56 19:56 20:15 Temp 98.7 98.7 Pulse 109 Resp 20 B/P (MAP) 120/52 (74) Pulse Ox 100 O2 Delivery Nasal Cannula Nasal Cannula Nasal Cannula Nasal Cannula O2 Flow Rate 2.0 2.0 2.0 2.0 10/01/16 10/02/16 10/02/16 10/02/16 23:20 03:39 07:34 07:34 Temp 98.0 98.0 98.0 98.0 Pulse 97 81 Resp 18 18 B/P (MAP) 115/60 (78) 122/72 (89) Pulse Ox 96 94 94 O2 Delivery Nasal Cannula Nasal Cannula Nasal Cannula Nasal Cannula O2 Flow Rate 2.0 2.0 2.0 2.0 10/02/16 10/02/16 10/02/16 10/02/16 07:42 07:45 07:50 09:02 Temp 98.1 98.1 Pulse 92 Resp 18 B/P (MAP) 134/74 (94) Pulse Ox 95 O2 Delivery Nasal Cannula Nasal Cannula Nasal Cannula Nasal Cannula O2 Flow Rate 2.0 2.0 2.0 2.0 10/02/16 10/02/16 10/02/16 11:16 11:25 11:39 Temp 98.4 98.4 Pulse 85 Resp 18 B/P (MAP) 119/57 (77) Pulse Ox 96 92 O2 Delivery Nasal Cannula Nasal Cannula Nasal Cannula O2 Flow Rate 3.0 2.0 2.0 Intake and Output 10/01/16 10/01/16 10/02/16 15:00 23:00 07:00 Intake Total 1000 ml 800 ml 500 ml Output Total 400 ml Balance 1000 ml 800 ml 100 ml ADRIANNA AWAN MD Oct 02, 2016 12:32
[2016-10-02] MEDS ORDERED: CALCIUM CARBONATE 500 MG TAB.CHEW PO PRN (13:15)
[2016-10-02] MEDS ORDERED: MAG HYDROX/ALUMINUM HYD/SIMETH 30 ML ORAL.SUSP PO PRN (13:15)
[2016-10-02 15:13] VITALS: BP 123/63
--- NOTE | 2016-10-02 15:59 | RAD ---
AP and lateral cervical spine radiographs 10/02/2016 Clinical history: Neck pain. AP and lateral upright digital radiographs of the cervical spine were obtained. There is diffuse osteopenia of the visualized bony structures. Mild straightening of the normal cervical lordosis is seen. Degenerative changes consisting of disc space narrowing, vertebral endplate sclerosis and mild anterior and posterior vertebral body osteophyte formation are seen involving prominently the C5-6 and C6-7 disc spaces. Degenerative changes are seen involving the uncovertebral and facet joints throughout the cervical disc spaces. No fracture or subluxation is seen. No prevertebral soft tissue swelling is noted. Atherosclerotic calcification is seen in the region of the carotid bifurcations. Impression: Degenerative changes are seen involving the cervical spine as outlined above. No acute osseous abnormality is seen.
--- NOTE | 2016-10-02 16:09 | CONS ---
DATE OF CONSULTATION: 10/02/2016 LOCATION: Room 676. ATTENDING PHYSICIAN: Dr. Lopez. The patient was seen at the request of Dr. Lopez for rehab evaluation. HISTORY OF PRESENT ILLNESS: This is a 76-year-old right-handed male with chronic obstructive pulmonary disease, usually uses 4 liters of oxygen all the time. He does not smoke anymore, admitted through the Emergency Room as his noted him with acute confusion and he could not recognize his . The patient had a CT scan of the brain and chest x-ray which failed to reveal any acute abnormalities. The patient apparently with chronic back, hip, and knee pain and takes narcotic pain medication on a regular basis. The patient also with known depression, anxiety, chronic hip pain, coronary artery disease, fibromyalgia, hypertension, hyperlipidemia, congestive heart failure, valve insufficiency, chronic obstructive pulmonary disease, gastroesophageal reflux disease, anemia, anxiety, osteoarthritis, status post coronary artery bypass graft, hernia repair, bilateral hip surgeries and also left total knee arthroplasty in the past. The patient lives with his , had stairs for him to manage. The patient is known ALLERGIC TO CIPRO AND PENTAZOCINE. PHYSICAL EXAMINATION: Today revealed a middle-aged male. He is alert, oriented to time, place, person and circumstance and follows commands appropriately. He had decreased acuity of hearing. The patient had 4+/5 grade muscle strength overall. Deep tendon reflexes are exaggerated at both knees and ankles. He had equal perception of touch and pinprick sensation bilaterally. He had tenderness to palpation over cervical, thoracic, and lumbar paraspinal muscles extending over to sacroiliac joint area and straight leg raising test is negative bilaterally. He had pain free range of motion of all four extremity joints, crepitus on range of motion of right knee and both ankles. His skin is intact at this time. He had exaggerated thoracic kyphosis. He is independent with bed mobility and transfers. Once up, he is walking without any obvious difficulty. ASSESSMENT: A middle-aged male with chronic neck and back pain, most probably from degenerative disk disease and degenerative joint disease of cervical and lumbar vertebrae and possible thoracic spine to rule out any compression fractures. The patient is status post bilateral hip surgery and left total knee arthroplasty in the past, chronic obstructive pulmonary disease oxygen dependent, coronary artery disease status post coronary artery bypass graft, valve insufficiency, hernia repair, anxiety, degenerative joint disease of his right knee and both ankles, fibromyalgia, hypertension, hyperlipidemia, congestive heart failure, anemia, and gastroesophageal reflux disease. RECOMMENDATIONS: He is doing really good, hopefully home with outpatient followup. I thought of trying him with ____ back support brace, but he is moving really good without any significant discomfort, with his COPD, I do not think he can tolerate back support brace. Dr. Lopez, I appreciate asking me to participate in the care of this interesting patient. I will be glad to follow him with you as needed for the rehabilitation. CANDELARIA TOWNSEND MD DR: CHANO/dyan JOB#: [id number] / [id number]
--- NOTE | 2016-10-02 16:12 | RAD ---
AP and lateral lumbar spine radiographs 10/02/2016 Clinical history: Low back pain. Standing AP and lateral digital radiographs of the lumbar spine were obtained. There is diffuse osteopenia of the visualized bony structures. Very mild S-shaped curvature of the thoracolumbar spine is seen. No fracture or subluxation of the lumbar vertebrae is seen. Degenerative changes are seen throughout the lumbar disc spaces consisting of varying degrees of disc space narrowing, vertebral endplate sclerosis and mild to mild anterior and posterior vertebral body osteophyte formation. Degenerative changes are seen involving the facet joints of the mid and lower lumbar spine. Atherosclerotic calcification of the abdominal aorta is seen. Impression: Degenerative changes are seen involving the lumbar spine as outlined above. No acute osseous abnormality is seen.
[2016-10-02] MEDS: WARFARIN 5 MG TABLET. PO SCH (16:15)
[2016-10-02] MEDS: LORazepam 1 MG TABLET PO PRN ×2 (16:15→22:48)
--- NOTE | 2016-10-02 16:17 | RAD ---
Lateral radiograph of the thoracic spine 10/02/2016 Clinical history: Mid back pain. Two lateral digital radiographs of the thoracic spine were obtained. There is diffuse osteopenia of the visualized bony structures. A compression fracture involving what appears to be the T6 vertebral body is seen. This is of uncertain age. No retropulsion of bone fragments into the central spinal canal is seen. Compression deformity of the what appears to be the superior endplate of the T10 vertebral body is noted. This is of uncertain age. No retropulsion of bone fragments into the central spinal canal is seen. Degenerative changes are seen throughout the thoracic disc spaces consisting of vertebral endplate sclerosis and minimal to mild anterior vertebral body osteophyte formation. Impression: Compression fractures of what appear to be the T6 and T10 vertebral bodies are seen of uncertain age. No retropulsion of bone fragments the central spinal canal is seen.
[2016-10-02 17:12] LABS: FIO2 ABG 28; HCO3 ABG 26 mmol/L (21-28); PCO2 ABG 38 mmHg (35-46); PH ABG 7.45 (7.35-7.45); PO2 ABG 69 mmHg (65-108); SAT O2 ABG 94 % (92-99)
[2016-10-02 19:52] VITALS: BP 123/60
[2016-10-02] MEDS: CYCLOBENZAPRINE 10 MG TABLET. PO SCH (20:32)
[2016-10-02 23:55] VITALS: BP 149/80
[2016-10-03 04:35] VITALS: BP 149/79
[2016-10-03] MEDS: oxyCODONE IR 5 MG TABLET PO PRN (04:43)
[2016-10-03] MEDS: IPRATRPIUM/ALBUTEROL 0.5/2.5MG 3 ML NEBU. NEB SCH ×4 (07:33→20:00)
[2016-10-03] MEDS: BUDESONIDE 0.5 MG/2 ML NEBU. NEB SCH ×2 (07:33→20:00)
[2016-10-03 07:40] VITALS: BP 146/70
[2016-10-03] MEDS: SERTRALINE 50 MG TABLET. PO SCH (08:35)
[2016-10-03] MEDS: PANTOPRAZOLE 40 MG TABLET.DR. PO SCH (08:35)
[2016-10-03] MEDS: AZITHROMYCIN 250 MG TABLET. PO SCH (08:35)
[2016-10-03] MEDS: FUROSEMIDE 40 MG TABLET. PO SCH (08:35)
[2016-10-03] MEDS: oxyCODONE/APAP 10/325 1 TAB TABLET PO SCH ×4 (08:35→20:46)
[2016-10-03] MEDS: ASPIRIN 325 MG TABLET PO SCH (08:35)
[2016-10-03] MEDS: POTASSIUM CHLORIDE 20 MEQ TABLET.ER. PO SCH (08:36)
[2016-10-03 09:17] LABS: FOLATE 8.74 ng/ml (3.2-20.0)
[2016-10-03] MEDS: LORazepam 1 MG TABLET PO PRN (09:31)
--- NOTE | 2016-10-03 09:32 | PDOC ---
PROGRESS NOTES Subjective Subjective He continues with SOB on exertion. Objective Objective Vital Signs Date Time Temp Pulse Resp B/P (MAP) Pulse Ox O2 Delivery O2 Flow Rate FiO2 10/03/16 08:35 Nasal Cannula 2.0 10/03/16 07:40 98.4 79 16 146/70 (95) 97 98.4 Intake and Output 10/03/16 07:00 Intake Total 960 ml Output Total 850 ml Balance 110 ml Intake Oral 960 ml Output Urine Total 850 ml Physical Exam Physical Exam He remains independent with his mobility and most of his ADLs.He had T6,T10 vertebral body compression fractures. Assessment Assessment Problems Medical Problems: (1) Acute and chronic respiratory failure ([id number]) Status: Acute (2) Altered mental status Status: Acute (3) COPD exacerbation Status: Acute (4) TIA (transient ischemic attack) Status: Acute Plan Plan of Care To obtain mri scan of thoracic spine to know the age of T6 vertebral body compression fracture and to consider kyphoplasty by IR if new.If it is old he can be discharged to home when medically stable. Comment Review of Relevant I have reviewed the following items guido (where applicable) has been applied. Labs Laboratory Tests Test 10/01/16 16:55 10/01/16 20:30 10/01/16 22:05 10/02/16 03:45 Troponin I Quantitative < 0.017 ng/mL (0.000-0.055) < 0.017 ng/mL (0.000-0.055) Nasal Screen MRSA (PCR) Positive (Negative) White Blood Count 8.2 x10^3/uL (4.0-11.0) Red Blood Count 3.13 x10^6/uL (4.30-5.70) Hemoglobin 10.1 g/dL (13.0-17.5) Hematocrit 28.1 % (39.0-53.0) Mean Corpuscular Volume 90 fL (79-100) Mean Corpuscular Hemoglobin 32 pg (25-35) Mean Corpuscular Hemoglobin Concent 36 g/dL (31-37) Red Cell Distribution Width 14.2 % (11.5-14.5) Platelet Count 245 x10^3/uL (140-400) Neutrophils (%) (Auto) 80 % (31-73) Lymphocytes (%) (Auto) 12 % (24-48) Monocytes (%) (Auto) 8 % (0-9) Eosinophils (%) (Auto) 0 % (0-3) Basophils (%) (Auto) 0 % (0-3) Neutrophils # (Auto) 6.6 x10^3uL (1.8-7.7) Lymphocytes # (Auto) 0.9 x10^3/uL (1.0-4.8) Monocytes # (Auto) 0.7 x10^3/uL (0.0-1.1) Eosinophils # (Auto) 0.0 x10^3/uL (0.0-0.7) Basophils # (Auto) 0.0 x10^3/uL (0.0-0.2) Sodium Level 142 mmol/L (136-145) Potassium Level 3.3 mmol/L (3.5-5.1) Chloride Level 105 mmol/L (98-107) Carbon Dioxide Level 27 mmol/L (21-32) Anion Gap 10 (6-14) Blood Urea Nitrogen 13 mg/dL (8-26) Creatinine 0.9 mg/dL (0.7-1.3) Estimated GFR (Cockcroft-Gault) 82.5 BUN/Creatinine Ratio 14 (6-20) Glucose Level 91 mg/dL (70-99) Calcium Level 8.5 mg/dL (8.5-10.1) Total Bilirubin 0.2 mg/dL (0.2-1.0) Aspartate Amino Transf (AST/SGOT) 18 U/L (15-37) Alanine Aminotransferase (ALT/SGPT) 18 U/L (16-63) Alkaline Phosphatase 126 U/L (46-116) Total Protein 6.5 g/dL (6.4-8.2) Albumin 3.1 g/dL (3.4-5.0) Albumin/Globulin Ratio 0.9 (1.0-1.7) Triglycerides Level 58 mg/dL (0-150) Cholesterol Level 151 mg/dL (0-200) LDL Cholesterol, Calculated 106 mg/dL (0-100) VLDL Cholesterol, Calculated 12 mg/dL (0-40) Non-HDL Cholesterol Calculated 118 mg/dL (0-129) HDL Cholesterol 33 mg/dL (40-60) Cholesterol/HDL Ratio 4.6 Test 10/02/16 16:54 10/03/16 04:25 O2 Saturation 94 % (92-99) Arterial Blood pH 7.45 (7.35-7.45) Arterial Blood pCO2 at Patient Temp 38 mmHg (35-46) Arterial Blood pO2 at Patient Temp 69 mmHg (65-108) Arterial Blood HCO3 26 mmol/L (21-28) Arterial Blood Base Excess 2 mmol/L (-3-3) FiO2 28 Erythrocyte Sedimentation Rate 18 (0-15) Ammonia 24 mcmol/L (11-34) Vitamin B12 Level 360 pg/mL (247-911) Serum Folate 8.74 ng/ml (3.2-20.0) Laboratory Tests Test 10/02/16 16:54 10/03/16 04:25 O2 Saturation 94 % (92-99) Arterial Blood pH 7.45 (7.35-7.45) Arterial Blood pCO2 at Patient Temp 38 mmHg (35-46) Arterial Blood pO2 at Patient Temp 69 mmHg (65-108) Arterial Blood HCO3 26 mmol/L (21-28) Arterial Blood Base Excess 2 mmol/L (-3-3) FiO2 28 Erythrocyte Sedimentation Rate 18 (0-15) Ammonia 24 mcmol/L (11-34) Vitamin B12 Level 360 pg/mL (247-911) Serum Folate 8.74 ng/ml (3.2-20.0) Microbiology 10/01/16 Blood Culture - Preliminary, Resulted NO GROWTH AFTER 2 DAYS Medications Current Medications Sodium Chloride 1,000 ml @ 1,000 mls/hr Q1H IV Last administered on 10/01/16 07:28; Start 10/01/16 at 07:30; Stop 10/01/16 at 08:29; Status DC Sodium Chloride (Normal Saline Flush) 10 ml QSHIFT PRN IV AFTER MEDS AND BLOOD DRAWS; Start 10/01/16 at 07:15 Fentanyl Citrate (Fentanyl 2ml Vial) 50 mcg 1X ONCE IV Last administered on 07:59; Start 10/01/16 at 08:00; Stop 10/01/16 at 08:01; Status DC Albuterol/ Ipratropium (Duoneb) 3 ml 1X ONCE NEB Last administered on 10:05; Start 10/01/16 at 10:15; Stop 10/01/16 at 10:16; Status DC Methylprednisolone Sodium Succinate (SOLU-Medrol 125MG VIAL) 125 mg 1X ONCE IV Last administered on 10/01/16 10:27; Start 10/01/16 at 10:15; Stop 10/01/16 at 10:16; Status DC Azithromycin 250 ml @ 250 mls/hr 1X ONCE IV Last administered on 10/01/16 10: 27; Start 10/01/16 at 10:15; Stop 10/01/16 at 11:14; Status DC Fentanyl Citrate (Fentanyl 2ml Vial) 75 mcg 1X ONCE IV Last administered on 10:26; Start 10/01/16 at 10:15; Stop 10/01/16 at 10:16; Status DC Ondansetron HCl (Zofran) 4 mg PRN Q8HRS PRN IV NAUSEA/VOMITING; Start 10/01/16 at 10:00; Stop 10/02/16 at 09:59; Status DC Sodium Chloride 1,000 ml @ 100 mls/hr Q10H IV Last administered on 10/02/16 04 :46; Start 10/01/16 at 10:15; Stop 10/02/16 at 10:14; Status DC Acetaminophen (Tylenol) 650 mg PRN Q4HRS PRN PO FEVER; Start 10/01/16 at 10:00; Stop 10/02/16 at 09:59; Status DC Albuterol/ Ipratropium (Duoneb) 3 ml RTQID NEB Last administered on 10/01/16 13 :06; Start 10/01/16 at 12:00; Stop 10/01/16 at 15:24; Status DC Aspirin (Ecotrin) 81 mg DAILY PO ; Start 10/02/16 at 09:00; Stop 10/02/16 at 09:00 ; Status DC Furosemide (Lasix) 40 mg DAILY PO Last administered on 10/03/16 08:35; Start at 16:00 Oxycodone/ Acetaminophen (Percocet 10/325) 1 tab QID PO Last administered on 08:35; Start 10/01/16 at 17:00 Pantoprazole Sodium (Protonix) 40 mg DAILYAC PO Last administered on 10/03/16 08:35; Start 10/01/16 at 16:00 Sertraline HCl (Zoloft) 100 mg DAILY PO Last administered on 10/03/16 08:35; Start 10/01/16 at 16:00 Warfarin Sodium (Coumadin) 5 mg DAILY16 PO Last administered on 10/02/16 16:15 ; Start 10/01/16 at 16:00 Non-Formulary Medication 2 puff QID IH ; Start 10/01/16 at 17:00; Status UNV Non-Formulary Medication 2 puff BID IH ; Start 10/01/16 at 21:00; Status UNV Cyclobenzaprine HCl (Flexeril) 5 mg QHS PO Last administered on 10/02/16 20:32 ; Start 10/01/16 at 21:00 Potassium Chloride (Klor-Con) 20 meq DAILYWBKFT PO Last administered on 08:36; Start 10/02/16 at 08:00 Non-Formulary Medication 1 cap DAILY IH ; Start 10/02/16 at 09:00; Status UNV Lorazepam (Ativan) 1 mg PRN Q6HRS PRN PO ANXIETY / AGITATION Last administered on 10/02/16 22:48; Start 10/01/16 at 15:15 Ketorolac Tromethamine (Toradol) 15 mg 1X ONCE IV Last administered on 16:24; Start 10/01/16 at 15:30; Stop 10/01/16 at 15:31; Status DC Budesonide (Pulmicort) 0.5 mg RTBID NEB Last administered on 10/03/16 07:33; Start 10/01/16 at 20:00 Warfarin Sodium (Coumadin Per Physician) 1 each PRN DAILY PRN MC SEE COMMENTS Last administered on 10/02/16 13:56; Start 10/01/16 at 15:30 Albuterol/ Ipratropium (Duoneb) 3 ml RTQID NEB Last administered on 10/03/16 07 :33; Start 10/01/16 at 16:00 Azithromycin (Zithromax) 250 mg DAILY PO Last administered on 10/03/16 08:35; Start 10/02/16 at 09:00 Aspirin (Christine Aspirin) 325 mg DAILYWBKFT PO Last administered on 10/03/16 08: 35; Start 10/02/16 at 08:00 Aspirin (Christine Aspirin) 325 mg 1X ONCE PO Last administered on 10/01/16 16:25 ; Start 10/01/16 at 16:15; Stop 10/01/16 at 16:16; Status DC Quetiapine Fumarate (SEROquel) 50 mg 1X ONCE PO Last administered on 10/02/16 00:16; Start 10/01/16 at 23:30; Stop 10/01/16 at 23:31; Status DC Oxycodone HCl (Roxicodone) 10 mg PRN Q3HRS PRN PO SEVERE PAIN Last administered on 10/03/16 04:43; Start 10/02/16 at 04:30 Potassium Chloride (Klor-Con) 40 meq 1X ONCE PO Last administered on 10/02/16 12:35; Start 10/02/16 at 12:30; Stop 10/02/16 at 12:31; Status DC Calcium Carbonate/ Glycine (Tums) 500 mg PRN AFTMEALHC PRN PO INDIGESTION; Start 10/02/16 at 13:15 Al Hydroxide/Mg Hydroxide (Mylanta Plus Xs) 30 ml PRN Q2HR PRN PO HEARTBURN / GAS Last administered on 10/02/16 13:20; Start 10/02/16 at 13:15 Active Scripts Active Reported Furosemide 40 Mg Tablet 1 Tab PO DAILY Pantoprazole Sodium 40 Mg Tablet. 1 Tab PO DAILY Potassium Chloride 20 Meq Tablet.er 20 Meq PO DAILY Warfarin Sodium 5 Mg Tablet 1 Tab PO DAILY Ativan (Lorazepam) 2 Mg Tablet 2 Mg PO TID Spiriva (Tiotropium [place]) 18 Mcg Cap.w.dev 1 Cap IH DAILY Proventil Hfa Inhaler (Albuterol Sulfate) 6.7 Gm Hfa.aer.ad 2 Puff IH QID Cyclobenzaprine Hcl 5 Mg Tablet 1 Tab PO HS Symbicort 160-4.5 Mcg Inhaler (Budesonide/Formoterol Fumarate) 10.2 Gm Hfa.aer.ad 2 Puff IH BID Sertraline Hcl 50 Mg Tablet 100 Mg PO DAILY Zinc 50 Mg Tablet 50 Mg PO Vitamin B Complex 1 Each Capsule 1 Each PO Vitamin E 400 Unit Capsule 400 Unit PO Aspirin Ec (Aspirin) 81 Mg Tablet. 1 Tab PO DAILY Fish Oil Ec 1,200 Mg Softgel ([place]-3S/Dha/Epa/Fish Oil) 1 Each Capsule. 1 Each PO Oxycodone-Acetaminophen 10-325 (Oxycodone Hcl/Acetaminophen) 1 Each Tablet 1 Tab PO QID Vitals/I & O Vital Sign - Last 24 Hours 10/02/16 10/02/16 10/02/16 10/02/16 11:16 11:25 11:39 15:13 Temp 98.4 98.4 98.4 98.4 Pulse 85 79 Resp 18 19 B/P (MAP) 119/57 (77) 123/63 (83) Pulse Ox 96 92 95 O2 Delivery Nasal Cannula Nasal Cannula Nasal Cannula Nasal Cannula O2 Flow Rate 3.0 2.0 2.0 2.0 10/02/16 10/02/16 10/02/16 10/02/16 16:10 16:15 17:17 19:52 Temp 98.6 98.6 Pulse 93 Resp 16 B/P (MAP) 123/60 (81) Pulse Ox 96 94 O2 Delivery Nasal Cannula Nasal Cannula Nasal Cannula Room Air O2 Flow Rate 2.0 2.0 2.0 10/02/16 10/02/16 10/02/16 10/03/16 20:09 20:20 23:55 04:35 Temp 98.2 97.9 98.2 97.9 Pulse 84 88 Resp 18 16 B/P (MAP) 149/80 (103) 149/79 (102) Pulse Ox 96 97 93 O2 Delivery Nasal Cannula Nasal Cannula Nasal Cannula Nasal Cannula O2 Flow Rate 2.0 2.0 2.0 2.0 10/03/16 10/03/16 10/03/16 10/03/16 07:34 07:40 07:47 08:35 Temp 98.4 98.4 Pulse 79 Resp 16 B/P (MAP) 146/70 (95) Pulse Ox 97 97 O2 Delivery Nasal Cannula Nasal Cannula Nasal Cannula Nasal Cannula O2 Flow Rate 3.0 2.0 2.0 2.0 Intake and Output 10/02/16 10/02/16 10/03/16 15:00 23:00 07:00 Intake Total 200 ml 760 ml Output Total 250 ml 600 ml Balance -50 ml 160 ml CANDELARIA TOWNSEND MD Oct 03, 2016 09:32
[2016-10-03 10:58] VITALS: BP 130/72
--- NOTE | 2016-10-03 12:14 | PDOC ---
PROGRESS NOTES Assessment Problems Medical Problems: (1) Acute and chronic respiratory failure ([id number]) Status: Acute (2) Altered mental status Status: Acute (3) COPD exacerbation Status: Acute (4) TIA (transient ischemic attack) Status: Acute Metabolic encephalopathy, Laboratory studies negative. Suspect prior dementia, but part of the problem may be his hearing loss Cervical and lumbar degenerative changes. Compression fractures, T6 and T10 Plan Note order for thoracic MRI Okay for discharge Follow-up with me in a month to reassess for dementia. Discussed with patient's . Objective Vital Signs Date Time Temp Pulse Resp B/P (MAP) Pulse Ox O2 Delivery O2 Flow Rate FiO2 10/03/16 12:04 Nasal Cannula 2.0 10/03/16 10:58 96.4 116 17 130/72 (91) 92 96.4 Intake and Output 10/03/16 07:00 Intake Total 960 ml Output Total 850 ml Balance 110 ml Intake Oral 960 ml Output Urine Total 850 ml PHYSICAL EXAM Alert. Very hard of hearing. Oriented to place and person, not date. PERRL. EOMI. CN: no focal findings. Muscle tone: normal. Muscle strength: 5/5 DTR: 1+ Plantar reflex: flexor Gait: not examined in bed. Sensory exam: no abnormal findings. No cerebellar signs elicited. Review of Relevant I have reviewed the following items guido (where applicable) has been applied. Labs Laboratory Tests Test 10/01/16 16:55 10/01/16 20:30 10/01/16 22:05 10/02/16 03:45 Troponin I Quantitative < 0.017 ng/mL (0.000-0.055) < 0.017 ng/mL (0.000-0.055) Nasal Screen MRSA (PCR) Positive (Negative) White Blood Count 8.2 x10^3/uL (4.0-11.0) Red Blood Count 3.13 x10^6/uL (4.30-5.70) Hemoglobin 10.1 g/dL (13.0-17.5) Hematocrit 28.1 % (39.0-53.0) Mean Corpuscular Volume 90 fL (79-100) Mean Corpuscular Hemoglobin 32 pg (25-35) Mean Corpuscular Hemoglobin Concent 36 g/dL (31-37) Red Cell Distribution Width 14.2 % (11.5-14.5) Platelet Count 245 x10^3/uL (140-400) Neutrophils (%) (Auto) 80 % (31-73) Lymphocytes (%) (Auto) 12 % (24-48) Monocytes (%) (Auto) 8 % (0-9) Eosinophils (%) (Auto) 0 % (0-3) Basophils (%) (Auto) 0 % (0-3) Neutrophils # (Auto) 6.6 x10^3uL (1.8-7.7) Lymphocytes # (Auto) 0.9 x10^3/uL (1.0-4.8) Monocytes # (Auto) 0.7 x10^3/uL (0.0-1.1) Eosinophils # (Auto) 0.0 x10^3/uL (0.0-0.7) Basophils # (Auto) 0.0 x10^3/uL (0.0-0.2) Sodium Level 142 mmol/L (136-145) Potassium Level 3.3 mmol/L (3.5-5.1) Chloride Level 105 mmol/L (98-107) Carbon Dioxide Level 27 mmol/L (21-32) Anion Gap 10 (6-14) Blood Urea Nitrogen 13 mg/dL (8-26) Creatinine 0.9 mg/dL (0.7-1.3) Estimated GFR (Cockcroft-Gault) 82.5 BUN/Creatinine Ratio 14 (6-20) Glucose Level 91 mg/dL (70-99) Calcium Level 8.5 mg/dL (8.5-10.1) Total Bilirubin 0.2 mg/dL (0.2-1.0) Aspartate Amino Transf (AST/SGOT) 18 U/L (15-37) Alanine Aminotransferase (ALT/SGPT) 18 U/L (16-63) Alkaline Phosphatase 126 U/L (46-116) Total Protein 6.5 g/dL (6.4-8.2) Albumin 3.1 g/dL (3.4-5.0) Albumin/Globulin Ratio 0.9 (1.0-1.7) Triglycerides Level 58 mg/dL (0-150) Cholesterol Level 151 mg/dL (0-200) LDL Cholesterol, Calculated 106 mg/dL (0-100) VLDL Cholesterol, Calculated 12 mg/dL (0-40) Non-HDL Cholesterol Calculated 118 mg/dL (0-129) HDL Cholesterol 33 mg/dL (40-60) Cholesterol/HDL Ratio 4.6 Test 10/02/16 16:54 10/03/16 04:25 O2 Saturation 94 % (92-99) Arterial Blood pH 7.45 (7.35-7.45) Arterial Blood pCO2 at Patient Temp 38 mmHg (35-46) Arterial Blood pO2 at Patient Temp 69 mmHg (65-108) Arterial Blood HCO3 26 mmol/L (21-28) Arterial Blood Base Excess 2 mmol/L (-3-3) FiO2 28 Erythrocyte Sedimentation Rate 18 (0-15) Ammonia 24 mcmol/L (11-34) Vitamin B12 Level 360 pg/mL (247-911) Serum Folate 8.74 ng/ml (3.2-20.0) Laboratory Tests Test 10/02/16 16:54 10/03/16 04:25 O2 Saturation 94 % (92-99) Arterial Blood pH 7.45 (7.35-7.45) Arterial Blood pCO2 at Patient Temp 38 mmHg (35-46) Arterial Blood pO2 at Patient Temp 69 mmHg (65-108) Arterial Blood HCO3 26 mmol/L (21-28) Arterial Blood Base Excess 2 mmol/L (-3-3) FiO2 28 Erythrocyte Sedimentation Rate 18 (0-15) Ammonia 24 mcmol/L (11-34) Vitamin B12 Level 360 pg/mL (247-911) Serum Folate 8.74 ng/ml (3.2-20.0) Microbiology 10/01/16 Blood Culture - Preliminary, Resulted NO GROWTH AFTER 2 DAYS Medications Current Medications Sodium Chloride 1,000 ml @ 1,000 mls/hr Q1H IV Last administered on 10/01/16 07:28; Start 10/01/16 at 07:30; Stop 10/01/16 at 08:29; Status DC Sodium Chloride (Normal Saline Flush) 10 ml QSHIFT PRN IV AFTER MEDS AND BLOOD DRAWS; Start 10/01/16 at 07:15 Fentanyl Citrate (Fentanyl 2ml Vial) 50 mcg 1X ONCE IV Last administered on 07:59; Start 10/01/16 at 08:00; Stop 10/01/16 at 08:01; Status DC Albuterol/ Ipratropium (Duoneb) 3 ml 1X ONCE NEB Last administered on 10:05; Start 10/01/16 at 10:15; Stop 10/01/16 at 10:16; Status DC Methylprednisolone Sodium Succinate (SOLU-Medrol 125MG VIAL) 125 mg 1X ONCE IV Last administered on 10/01/16 10:27; Start 10/01/16 at 10:15; Stop 10/01/16 at 10:16; Status DC Azithromycin 250 ml @ 250 mls/hr 1X ONCE IV Last administered on 10/01/16 10: 27; Start 10/01/16 at 10:15; Stop 10/01/16 at 11:14; Status DC Fentanyl Citrate (Fentanyl 2ml Vial) 75 mcg 1X ONCE IV Last administered on 10:26; Start 10/01/16 at 10:15; Stop 10/01/16 at 10:16; Status DC Ondansetron HCl (Zofran) 4 mg PRN Q8HRS PRN IV NAUSEA/VOMITING; Start 10/01/16 at 10:00; Stop 10/02/16 at 09:59; Status DC Sodium Chloride 1,000 ml @ 100 mls/hr Q10H IV Last administered on 10/02/16 04 :46; Start 10/01/16 at 10:15; Stop 10/02/16 at 10:14; Status DC Acetaminophen (Tylenol) 650 mg PRN Q4HRS PRN PO FEVER; Start 10/01/16 at 10:00; Stop 10/02/16 at 09:59; Status DC Albuterol/ Ipratropium (Duoneb) 3 ml RTQID NEB Last administered on 10/01/16 13 :06; Start 10/01/16 at 12:00; Stop 10/01/16 at 15:24; Status DC Aspirin (Ecotrin) 81 mg DAILY PO ; Start 10/02/16 at 09:00; Stop 10/02/16 at 09:00 ; Status DC Furosemide (Lasix) 40 mg DAILY PO Last administered on 10/03/16 08:35; Start at 16:00 Oxycodone/ Acetaminophen (Percocet 10/325) 1 tab QID PO Last administered on 12:04; Start 10/01/16 at 17:00 Pantoprazole Sodium (Protonix) 40 mg DAILYAC PO Last administered on 10/03/16 08:35; Start 10/01/16 at 16:00 Sertraline HCl (Zoloft) 100 mg DAILY PO Last administered on 10/03/16 08:35; Start 10/01/16 at 16:00 Warfarin Sodium (Coumadin) 5 mg DAILY16 PO Last administered on 10/02/16 16:15 ; Start 10/01/16 at 16:00 Non-Formulary Medication 2 puff QID IH ; Start 10/01/16 at 17:00; Status UNV Non-Formulary Medication 2 puff BID IH ; Start 10/01/16 at 21:00; Status UNV Cyclobenzaprine HCl (Flexeril) 5 mg QHS PO Last administered on 10/02/16 20:32 ; Start 10/01/16 at 21:00 Potassium Chloride (Klor-Con) 20 meq DAILYWBKFT PO Last administered on 08:36; Start 10/02/16 at 08:00 Non-Formulary Medication 1 cap DAILY IH ; Start 10/02/16 at 09:00; Status UNV Lorazepam (Ativan) 1 mg PRN Q6HRS PRN PO ANXIETY / AGITATION Last administered on 10/03/16 09:31; Start 10/01/16 at 15:15 Ketorolac Tromethamine (Toradol) 15 mg 1X ONCE IV Last administered on 16:24; Start 10/01/16 at 15:30; Stop 10/01/16 at 15:31; Status DC Budesonide (Pulmicort) 0.5 mg RTBID NEB Last administered on 10/03/16 07:33; Start 10/01/16 at 20:00 Warfarin Sodium (Coumadin Per Physician) 1 each PRN DAILY PRN MC SEE COMMENTS Last administered on 10/02/16 13:56; Start 10/01/16 at 15:30 Albuterol/ Ipratropium (Duoneb) 3 ml RTQID NEB Last administered on 10/03/16 11 :12; Start 10/01/16 at 16:00 Azithromycin (Zithromax) 250 mg DAILY PO Last administered on 10/03/16 08:35; Start 10/02/16 at 09:00 Aspirin (Christine Aspirin) 325 mg DAILYWBKFT PO Last administered on 10/03/16 08: 35; Start 10/02/16 at 08:00 Aspirin (Christine Aspirin) 325 mg 1X ONCE PO Last administered on 10/01/16 16:25 ; Start 10/01/16 at 16:15; Stop 10/01/16 at 16:16; Status DC Quetiapine Fumarate (SEROquel) 50 mg 1X ONCE PO Last administered on 10/02/16 00:16; Start 10/01/16 at 23:30; Stop 10/01/16 at 23:31; Status DC Oxycodone HCl (Roxicodone) 10 mg PRN Q3HRS PRN PO SEVERE PAIN Last administered on 10/03/16 04:43; Start 10/02/16 at 04:30 Potassium Chloride (Klor-Con) 40 meq 1X ONCE PO Last administered on 10/02/16 12:35; Start 10/02/16 at 12:30; Stop 10/02/16 at 12:31; Status DC Calcium Carbonate/ Glycine (Tums) 500 mg PRN AFTMEALHC PRN PO INDIGESTION; Start 10/02/16 at 13:15 Al Hydroxide/Mg Hydroxide (Mylanta Plus Xs) 30 ml PRN Q2HR PRN PO HEARTBURN / GAS Last administered on 10/02/16 13:20; Start 10/02/16 at 13:15 Active Scripts Active Reported Furosemide 40 Mg Tablet 1 Tab PO DAILY Pantoprazole Sodium 40 Mg Tablet.dr 1 Tab PO DAILY Potassium Chloride 20 Meq Tablet.er 20 Meq PO DAILY Warfarin Sodium 5 Mg Tablet 1 Tab PO DAILY Ativan (Lorazepam) 2 Mg Tablet 2 Mg PO TID Spiriva (Tiotropium [place]) 18 Mcg Cap.w.dev 1 Cap IH DAILY Proventil Hfa Inhaler (Albuterol Sulfate) 6.7 Gm Hfa.aer.ad 2 Puff IH QID Cyclobenzaprine Hcl 5 Mg Tablet 1 Tab PO HS Symbicort 160-4.5 Mcg Inhaler (Budesonide/Formoterol Fumarate) 10.2 Gm Hfa.aer.ad 2 Puff IH BID Sertraline Hcl 50 Mg Tablet 100 Mg PO DAILY Zinc 50 Mg Tablet 50 Mg PO Vitamin B Complex 1 Each Capsule 1 Each PO Vitamin E 400 Unit Capsule 400 Unit PO Aspirin Ec (Aspirin) 81 Mg Tablet. 1 Tab PO DAILY Fish Oil Ec 1,200 Mg Softgel ([place]-3S/Dha/Epa/Fish Oil) 1 Each Capsule.dr 1 Each PO Oxycodone-Acetaminophen 10-325 (Oxycodone Hcl/Acetaminophen) 1 Each Tablet 1 Tab PO QID Vitals/I & O Vital Sign - Last 24 Hours 10/02/16 10/02/16 10/02/16 10/02/16 15:13 16:10 16:15 19:52 Temp 98.4 98.6 98.4 98.6 Pulse 79 93 Resp 19 16 B/P (MAP) 123/63 (83) 123/60 (81) Pulse Ox 95 96 94 O2 Delivery Nasal Cannula Nasal Cannula Nasal Cannula Room Air O2 Flow Rate 2.0 2.0 2.0 10/02/16 10/02/16 10/02/16 10/03/16 20:09 20:20 23:55 04:35 Temp 98.2 97.9 98.2 97.9 Pulse 84 88 Resp 18 16 B/P (MAP) 149/80 (103) 149/79 (102) Pulse Ox 96 97 93 O2 Delivery Nasal Cannula Nasal Cannula Nasal Cannula Nasal Cannula O2 Flow Rate 2.0 2.0 2.0 2.0 10/03/16 10/03/16 10/03/16 10/03/16 07:34 07:40 07:47 08:35 Temp 98.4 98.4 Pulse 79 Resp 16 B/P (MAP) 146/70 (95) Pulse Ox 97 97 O2 Delivery Nasal Cannula Nasal Cannula Nasal Cannula Nasal Cannula O2 Flow Rate 3.0 2.0 2.0 2.0 10/03/16 10/03/16 10/03/16 10/03/16 09:31 10:58 11:13 12:04 Temp 96.4 96.4 Pulse 116 Resp 17 B/P (MAP) 130/72 (91) Pulse Ox 92 O2 Delivery Nasal Cannula Nasal Cannula Nasal Cannula Nasal Cannula O2 Flow Rate 2.0 2.0 3.0 2.0 Intake and Output 10/02/16 10/02/16 10/03/16 15:00 23:00 07:00 Intake Total 200 ml 760 ml Output Total 250 ml 600 ml Balance -50 ml 160 ml Images Cervical, thoracic, lumbar x-rays reviewed RIKY RAMÍREZ MD Oct 03, 2016 12:14
--- NOTE | 2016-10-03 12:29 | PDOC ---
PROGRESS NOTES Chief Complaint Chief Complaint Assessment/Plan confusion, metabolic encephalopathy probably undiagnosed dementia, hx dementia COPD, chronic stable GEn weakness, mult joint pain, hips, knees, back with OA and mult fractures weakness and debility and falls, afib, chronic diastolic CHF, not on AC, high fall risk HArd of hearing DJD cervical and lumbar spine OLd compression fx throacic spine History of Present Illness History of Present Illness Very [place] NO new complains NO acute events overnight IMages shows DJD cervical and lumbar spines and possibly old compression fx thoracic Now for MRI dry per physiatry PLAN": Await MRI PT./OT SO far as per pT recs, plan for HH upon dc azra Malagon Vitals Vitals Vital Signs Date Time Temp Pulse Resp B/P (MAP) Pulse Ox O2 Delivery O2 Flow Rate FiO2 10/03/16 12:04 Nasal Cannula 2.0 10/03/16 10:58 96.4 116 17 130/72 (91) 92 96.4 Physical Exam General: Alert, Oriented X3, Cooperative, No acute distress Heart: Normal S1, Normal S2, Other (irreg rate and rhythm) Lungs: Other Abdomen: Normal bowel sounds Extremities: No clubbing, No cyanosis, No edema, Normal pulses Skin: No rashes, No breakdown, No significant lesion Labs LABS Laboratory Tests Test 10/02/16 16:54 10/03/16 04:25 O2 Saturation 94 % (92-99) Arterial Blood pH 7.45 (7.35-7.45) Arterial Blood pCO2 at Patient Temp 38 mmHg (35-46) Arterial Blood pO2 at Patient Temp 69 mmHg (65-108) Arterial Blood HCO3 26 mmol/L (21-28) Arterial Blood Base Excess 2 mmol/L (-3-3) FiO2 28 Erythrocyte Sedimentation Rate 18 (0-15) Ammonia 24 mcmol/L (11-34) Vitamin B12 Level 360 pg/mL (247-911) Serum Folate 8.74 ng/ml (3.2-20.0) Review of Systems Review of Systems hard to assess, very [place] Assessment and Plan Assessmemt and Plan Problems Medical Problems: (1) Acute and chronic respiratory failure ([id number]) Status: Acute (2) Altered mental status Status: Acute (3) COPD exacerbation Status: Acute (4) TIA (transient ischemic attack) Status: Acute Problems: Comment Review of Relevant I have reviewed the following items guido (where applicable) has been applied. Labs Laboratory Tests Test 10/01/16 16:55 10/01/16 20:30 10/01/16 22:05 10/02/16 03:45 Troponin I Quantitative < 0.017 ng/mL (0.000-0.055) < 0.017 ng/mL (0.000-0.055) Nasal Screen MRSA (PCR) Positive (Negative) White Blood Count 8.2 x10^3/uL (4.0-11.0) Red Blood Count 3.13 x10^6/uL (4.30-5.70) Hemoglobin 10.1 g/dL (13.0-17.5) Hematocrit 28.1 % (39.0-53.0) Mean Corpuscular Volume 90 fL (79-100) Mean Corpuscular Hemoglobin 32 pg (25-35) Mean Corpuscular Hemoglobin Concent 36 g/dL (31-37) Red Cell Distribution Width 14.2 % (11.5-14.5) Platelet Count 245 x10^3/uL (140-400) Neutrophils (%) (Auto) 80 % (31-73) Lymphocytes (%) (Auto) 12 % (24-48) Monocytes (%) (Auto) 8 % (0-9) Eosinophils (%) (Auto) 0 % (0-3) Basophils (%) (Auto) 0 % (0-3) Neutrophils # (Auto) 6.6 x10^3uL (1.8-7.7) Lymphocytes # (Auto) 0.9 x10^3/uL (1.0-4.8) Monocytes # (Auto) 0.7 x10^3/uL (0.0-1.1) Eosinophils # (Auto) 0.0 x10^3/uL (0.0-0.7) Basophils # (Auto) 0.0 x10^3/uL (0.0-0.2) Sodium Level 142 mmol/L (136-145) Potassium Level 3.3 mmol/L (3.5-5.1) Chloride Level 105 mmol/L (98-107) Carbon Dioxide Level 27 mmol/L (21-32) Anion Gap 10 (6-14) Blood Urea Nitrogen 13 mg/dL (8-26) Creatinine 0.9 mg/dL (0.7-1.3) Estimated GFR (Cockcroft-Gault) 82.5 BUN/Creatinine Ratio 14 (6-20) Glucose Level 91 mg/dL (70-99) Calcium Level 8.5 mg/dL (8.5-10.1) Total Bilirubin 0.2 mg/dL (0.2-1.0) Aspartate Amino Transf (AST/SGOT) 18 U/L (15-37) Alanine Aminotransferase (ALT/SGPT) 18 U/L (16-63) Alkaline Phosphatase 126 U/L (46-116) Total Protein 6.5 g/dL (6.4-8.2) Albumin 3.1 g/dL (3.4-5.0) Albumin/Globulin Ratio 0.9 (1.0-1.7) Triglycerides Level 58 mg/dL (0-150) Cholesterol Level 151 mg/dL (0-200) LDL Cholesterol, Calculated 106 mg/dL (0-100) VLDL Cholesterol, Calculated 12 mg/dL (0-40) Non-HDL Cholesterol Calculated 118 mg/dL (0-129) HDL Cholesterol 33 mg/dL (40-60) Cholesterol/HDL Ratio 4.6 Test 10/02/16 16:54 10/03/16 04:25 O2 Saturation 94 % (92-99) Arterial Blood pH 7.45 (7.35-7.45) Arterial Blood pCO2 at Patient Temp 38 mmHg (35-46) Arterial Blood pO2 at Patient Temp 69 mmHg (65-108) Arterial Blood HCO3 26 mmol/L (21-28) Arterial Blood Base Excess 2 mmol/L (-3-3) FiO2 28 Erythrocyte Sedimentation Rate 18 (0-15) Ammonia 24 mcmol/L (11-34) Vitamin B12 Level 360 pg/mL (247-911) Serum Folate 8.74 ng/ml (3.2-20.0) Laboratory Tests Test 10/02/16 16:54 10/03/16 04:25 O2 Saturation 94 % (92-99) Arterial Blood pH 7.45 (7.35-7.45) Arterial Blood pCO2 at Patient Temp 38 mmHg (35-46) Arterial Blood pO2 at Patient Temp 69 mmHg (65-108) Arterial Blood HCO3 26 mmol/L (21-28) Arterial Blood Base Excess 2 mmol/L (-3-3) FiO2 28 Erythrocyte Sedimentation Rate 18 (0-15) Ammonia 24 mcmol/L (11-34) Vitamin B12 Level 360 pg/mL (247-911) Serum Folate 8.74 ng/ml (3.2-20.0) Microbiology 10/01/16 Blood Culture - Preliminary, Resulted NO GROWTH AFTER 2 DAYS Medications Current Medications Sodium Chloride 1,000 ml @ 1,000 mls/hr Q1H IV Last administered on 10/01/16 07:28; Start 10/01/16 at 07:30; Stop 10/01/16 at 08:29; Status DC Sodium Chloride (Normal Saline Flush) 10 ml QSHIFT PRN IV AFTER MEDS AND BLOOD DRAWS; Start 10/01/16 at 07:15 Fentanyl Citrate (Fentanyl 2ml Vial) 50 mcg 1X ONCE IV Last administered on 07:59; Start 10/01/16 at 08:00; Stop 10/01/16 at 08:01; Status DC Albuterol/ Ipratropium (Duoneb) 3 ml 1X ONCE NEB Last administered on 10:05; Start 10/01/16 at 10:15; Stop 10/01/16 at 10:16; Status DC Methylprednisolone Sodium Succinate (SOLU-Medrol 125MG VIAL) 125 mg 1X ONCE IV Last administered on 10/01/16 10:27; Start 10/01/16 at 10:15; Stop 10/01/16 at 10:16; Status DC Azithromycin 250 ml @ 250 mls/hr 1X ONCE IV Last administered on 10/01/16 10: 27; Start 10/01/16 at 10:15; Stop 10/01/16 at 11:14; Status DC Fentanyl Citrate (Fentanyl 2ml Vial) 75 mcg 1X ONCE IV Last administered on 10:26; Start 10/01/16 at 10:15; Stop 10/01/16 at 10:16; Status DC Ondansetron HCl (Zofran) 4 mg PRN Q8HRS PRN IV NAUSEA/VOMITING; Start 10/01/16 at 10:00; Stop 10/02/16 at 09:59; Status DC Sodium Chloride 1,000 ml @ 100 mls/hr Q10H IV Last administered on 10/02/16 04 :46; Start 10/01/16 at 10:15; Stop 10/02/16 at 10:14; Status DC Acetaminophen (Tylenol) 650 mg PRN Q4HRS PRN PO FEVER; Start 10/01/16 at 10:00; Stop 10/02/16 at 09:59; Status DC Albuterol/ Ipratropium (Duoneb) 3 ml RTQID NEB Last administered on 10/01/16 13 :06; Start 10/01/16 at 12:00; Stop 10/01/16 at 15:24; Status DC Aspirin (Ecotrin) 81 mg DAILY PO ; Start 10/02/16 at 09:00; Stop 10/02/16 at 09:00 ; Status DC Furosemide (Lasix) 40 mg DAILY PO Last administered on 10/03/16 08:35; Start at 16:00 Oxycodone/ Acetaminophen (Percocet 10/325) 1 tab QID PO Last administered on 12:04; Start 10/01/16 at 17:00 Pantoprazole Sodium (Protonix) 40 mg DAILYAC PO Last administered on 10/03/16 08:35; Start 10/01/16 at 16:00 Sertraline HCl (Zoloft) 100 mg DAILY PO Last administered on 10/03/16 08:35; Start 10/01/16 at 16:00 Warfarin Sodium (Coumadin) 5 mg DAILY16 PO Last administered on 10/02/16 16:15 ; Start 10/01/16 at 16:00 Non-Formulary Medication 2 puff QID IH ; Start 10/01/16 at 17:00; Status UNV Non-Formulary Medication 2 puff BID IH ; Start 10/01/16 at 21:00; Status UNV Cyclobenzaprine HCl (Flexeril) 5 mg QHS PO Last administered on 10/02/16 20:32 ; Start 10/01/16 at 21:00 Potassium Chloride (Klor-Con) 20 meq DAILYWBKFT PO Last administered on 08:36; Start 10/02/16 at 08:00 Non-Formulary Medication 1 cap DAILY IH ; Start 10/02/16 at 09:00; Status UNV Lorazepam (Ativan) 1 mg PRN Q6HRS PRN PO ANXIETY / AGITATION Last administered on 10/03/16 09:31; Start 10/01/16 at 15:15 Ketorolac Tromethamine (Toradol) 15 mg 1X ONCE IV Last administered on 16:24; Start 10/01/16 at 15:30; Stop 10/01/16 at 15:31; Status DC Budesonide (Pulmicort) 0.5 mg RTBID NEB Last administered on 10/03/16 07:33; Start 10/01/16 at 20:00 Warfarin Sodium (Coumadin Per Physician) 1 each PRN DAILY PRN MC SEE COMMENTS Last administered on 10/02/16 13:56; Start 10/01/16 at 15:30 Albuterol/ Ipratropium (Duoneb) 3 ml RTQID NEB Last administered on 10/03/16 11 :12; Start 10/01/16 at 16:00 Azithromycin (Zithromax) 250 mg DAILY PO Last administered on 10/03/16 08:35; Start 10/02/16 at 09:00 Aspirin ([place] Aspirin) 325 mg DAILYWBKFT PO Last administered on 10/03/16 08: 35; Start 10/02/16 at 08:00 Aspirin ([place] Aspirin) 325 mg 1X ONCE PO Last administered on 10/01/16 16:25 ; Start 10/01/16 at 16:15; Stop 10/01/16 at 16:16; Status DC Quetiapine Fumarate (SEROquel) 50 mg 1X ONCE PO Last administered on 10/02/16 00:16; Start 10/01/16 at 23:30; Stop 10/01/16 at 23:31; Status DC Oxycodone HCl (Roxicodone) 10 mg PRN Q3HRS PRN PO SEVERE PAIN Last administered on 10/03/16 04:43; Start 10/02/16 at 04:30 Potassium Chloride (Klor-Con) 40 meq 1X ONCE PO Last administered on 10/02/16 12:35; Start 10/02/16 at 12:30; Stop 10/02/16 at 12:31; Status DC Calcium Carbonate/ Glycine (Tums) 500 mg PRN AFTMEALHC PRN PO INDIGESTION; Start 8/7/17 at 13:15 Al Hydroxide/Mg Hydroxide (Mylanta Plus Xs) 30 ml PRN Q2HR PRN PO HEARTBURN / GAS Last administered on 10/02/16t 13:20; Start 10/02/16 at 13:15 Active Scripts Active Reported Furosemide 40 Mg Tablet 1 Tab PO DAILY Pantoprazole Sodium 40 Mg Tablet. 1 Tab PO DAILY Potassium Chloride 20 Meq Tablet.er 20 Meq PO DAILY Warfarin Sodium 5 Mg Tablet 1 Tab PO DAILY Ativan (Lorazepam) 2 Mg Tablet 2 Mg PO TID Spiriva (Tiotropium [place]) 18 Mcg Cap.w.dev 1 Cap IH DAILY Proventil Hfa Inhaler (Albuterol Sulfate) 6.7 Gm Hfa.aer.ad 2 Puff IH QID Cyclobenzaprine Hcl 5 Mg Tablet 1 Tab PO HS Symbicort 160-4.5 Mcg Inhaler (Budesonide/Formoterol Fumarate) 10.2 Gm Hfa.aer.ad 2 Puff IH BID Sertraline Hcl 50 Mg Tablet 100 Mg PO DAILY Zinc 50 Mg Tablet 50 Mg PO Vitamin B Complex 1 Each Capsule 1 Each PO Vitamin E 400 Unit Capsule 400 Unit PO Aspirin Ec (Aspirin) 81 Mg Tablet. 1 Tab PO DAILY Fish Oil Ec 1,200 Mg Softgel ([place]-3S/Dha/Epa/Fish Oil) 1 Each Capsule. 1 Each PO Oxycodone-Acetaminophen 10-325 (Oxycodone Hcl/Acetaminophen) 1 Each Tablet 1 Tab PO QID Vitals/I & O Vital Sign - Last 24 Hours 10/02/16 10/02/16 10/02/16 10/02/16 15:13 16:10 16:15 19:52 Temp 98.4 98.6 98.4 98.6 Pulse 79 93 Resp 19 16 B/P (MAP) 123/63 (83) 123/60 (81) Pulse Ox 95 96 94 O2 Delivery Nasal Cannula Nasal Cannula Nasal Cannula Room Air O2 Flow Rate 2.0 2.0 2.0 10/02/16 10/02/16 10/02/16 10/03/16 20:09 20:20 23:55 04:35 Temp 98.2 97.9 98.2 97.9 Pulse 84 88 Resp 18 16 B/P (MAP) 149/80 (103) 149/79 (102) Pulse Ox 96 97 93 O2 Delivery Nasal Cannula Nasal Cannula Nasal Cannula Nasal Cannula O2 Flow Rate 2.0 2.0 2.0 2.0 10/03/16 10/03/16 10/03/16 10/03/16 07:34 07:40 07:47 08:35 Temp 98.4 98.4 Pulse 79 Resp 16 B/P (MAP) 146/70 (95) Pulse Ox 97 97 O2 Delivery Nasal Cannula Nasal Cannula Nasal Cannula Nasal Cannula O2 Flow Rate 3.0 2.0 2.0 2.0 10/03/16 10/03/16 10/03/16 10/03/16 09:31 10:58 11:13 12:04 Temp 96.4 96.4 Pulse 116 Resp 17 B/P (MAP) 130/72 (91) Pulse Ox 92 O2 Delivery Nasal Cannula Nasal Cannula Nasal Cannula Nasal Cannula O2 Flow Rate 2.0 2.0 3.0 2.0 Intake and Output 10/02/16 10/02/16 10/03/16 15:00 23:00 07:00 Intake Total 200 ml 760 ml Output Total 250 ml 600 ml Balance -50 ml 160 ml ADRIANNA AWAN MD Oct 03, 2016 12:29
--- NOTE | 2016-10-03 13:24 | RAD ---
EXAM: Thoracic spine MRI without contrast. HISTORY: Pain. Compression fractures. TECHNIQUE: Multiplanar, multisequence magnetic resonance imaging of the thoracic spine was performed without contrast. COMPARISON: Radiographs dated 10/02/2016. FINDINGS: There is a mild to moderate acute or subacute compression fracture of T11, with approximately one third loss of anterior and mid vertebral body height. There is minimal retropulsion of the right posterior paracentral cortex into the central canal, without significant central canal stenosis. There is a severe chronic wedge compression fracture of T7 with greater than two thirds loss of anterior vertebral body height and no significant retropulsion of the cortex. There is a mild to moderate chronic compression fracture of T6 with approximately one third to one half of anterior vertebral body height. There is a mild chronic wedge compression fracture of T3, with less than one third of anterior vertebral body height. There are median sternotomy wires. There is increased thoracic kyphosis and thoracolumbar scoliosis. There is straightening and slight reversal of cervical lordosis. There is slight anterolisthesis of C3 on C4 and C4 on C5 and retrolisthesis of C5 on C6. There is also mild anterolisthesis of T2 on T3. There is degenerative endplate remodeling with disc space narrowing, osteophytosis and Schmorl's node formation involving the cervical spine primarily at C5-C6 and C6-C7, incompletely evaluated on the current exam. There is suspected right lower lobe atelectasis or infiltrate. There is a small right pleural effusion. The conus terminates at L1. There is endplate remodeling at multiple levels. There are multiple thoracic endplate Schmorl's nodes. There are a few small hemangiomas. No suspicious osseous lesion is seen. At T6-T7, there is a large posterior central to right paracentral disc protrusion which measures approximately 7 mm in maximum anterior posterior dimension and results in deformation and deviation of the right aspect of the thoracic spinal cord and moderate central canal stenosis. No spinal cord signal abnormality is seen at this level. At T8-T9, there is a shallow right paracentral disc protrusion. There is no stenosis. At T9-T10, there is a shallow left paracentral disc protrusion which slightly flattens the left ventral aspect of the spinal cord. There is no significant stenosis. At T10-T11, there is a right paracentral disc protrusion and slight retropulsion of the right posterior paracentral cortex. This results in effacement of the right ventral thecal sac without significant central canal stenosis. At T11-T12, there is a left paracentral disc protrusion which slightly effaces the left ventral thecal sac without significant stenosis. At T12-L1, there is a right paracentral to foraminal disc protrusion. There is minimal right foraminal stenosis. IMPRESSION: 1. Mild to moderate acute or subacute compression fracture of T11. The combination of a right paracentral disc protrusion and slight vertical portion of the right posterior paracentral cortex at this level resulting in effacement of the right ventral thecal sac without significant stenosis. 2. Severe chronic compression fracture of T7. There is a large posterior central to right paracentral disc protrusion which deforms and deviates the thoracic spinal cord at this level and results in moderate central canal stenosis. No spinal cord signal abnormality is seen. 3. Mild to moderate chronic compression fracture of T6 and and mild chronic compression fracture of T3. 4. Multilevel degenerative change throughout the thoracic spine, described in detail above. 5. Multilevel degenerative changes of the cervical spine, incompletely evaluated on the current exam. 6. Focal lumbar scoliosis and increased thoracic kyphosis. 7. Right lower lobe infiltrate or atelectasis with small pleural effusion. Electronically signed by: Mary Cobian MD (10/03/2016 1:21 PM) [id number]
[2016-10-03 15:00] VITALS: BP 127/62
[2016-10-03] MEDS: WARFARIN 5 MG TABLET. PO SCH (16:23)
[2016-10-03 19:00] VITALS: BP 134/75
[2016-10-03] MEDS: CYCLOBENZAPRINE 10 MG TABLET. PO SCH (20:45)
[2016-10-03 23:00] VITALS: BP 147/94
[2016-10-04] MEDS: oxyCODONE IR 5 MG TABLET PO PRN ×3 (00:21→09:10)
[2016-10-04 03:00] VITALS: BP 138/70
[2016-10-04] MEDS: IPRATRPIUM/ALBUTEROL 0.5/2.5MG 3 ML NEBU. NEB SCH ×2 (04:05→11:28)
[2016-10-04 05:00] LABS: INR 2.6 (0.8-1.1); PROTHROMBIN TIME PATIENT 26.4 SEC (11.7-14.0)
[2016-10-04 07:30] VITALS: BP 130/62
[2016-10-04] MEDS: BUDESONIDE 0.5 MG/2 ML NEBU. NEB SCH (07:49)
--- NOTE | 2016-10-04 09:02 | PDOC ---
PROGRESS NOTES Subjective Subjective No new complaints. Objective Objective Vital Signs Date Time Temp Pulse Resp B/P (MAP) Pulse Ox O2 Delivery O2 Flow Rate FiO2 10/04/16 07:50 95 Nasal Cannula 3.0 10/04/16 07:30 97.7 79 19 130/62 (84) 97.7 Intake and Output 10/04/16 07:00 Intake Total 500 ml Balance 500 ml Intake Oral 500 ml # Voids 14 # Bowel Movements 2 Physical Exam Physical Exam He had mri scan evidence of mild to moderate acute or subacute T11 vertebral body compression fracture and severe old compression fracture of T7 and moderate old compression deformity of T6 with disc protrusion at T6-T7 and multilevel DDD of thoracic vertebrae. He remains independent with his mobility and self care and his activity is limited by SOB with exertion.No neurological evidence of spinal cord lesion or thoracic radiculopathy. Assessment Assessment Problems Medical Problems: (1) Acute and chronic respiratory failure ([id number]) Status: Acute (2) Altered mental status Status: Acute (3) COPD exacerbation Status: Acute (4) TIA (transient ischemic attack) Status: Acute Plan Plan of Care As he is not having significant back pain interfering with his mobility,to hold off consideration of T11 kyphoplasty and home with home health follow up when medically stable. Comment Review of Relevant I have reviewed the following items guido (where applicable) has been applied. Labs Laboratory Tests Test 10/02/16 16:54 10/03/16 04:25 10/04/16 04:08 O2 Saturation 94 % (92-99) Arterial Blood pH 7.45 (7.35-7.45) Arterial Blood pCO2 at Patient Temp 38 mmHg (35-46) Arterial Blood pO2 at Patient Temp 69 mmHg (65-108) Arterial Blood HCO3 26 mmol/L (21-28) Arterial Blood Base Excess 2 mmol/L (-3-3) FiO2 28 Erythrocyte Sedimentation Rate 18 (0-15) Ammonia 24 mcmol/L (11-34) Vitamin B12 Level 360 pg/mL (247-911) Serum Folate 8.74 ng/ml (3.2-20.0) Prothrombin Time 26.4 SEC (11.7-14.0) Prothromb Time International Ratio 2.6 (0.8-1.1) Laboratory Tests Test 10/04/16 04:08 Prothrombin Time 26.4 SEC (11.7-14.0) Prothromb Time International Ratio 2.6 (0.8-1.1) Microbiology 10/01/16 Blood Culture - Preliminary, Resulted NO GROWTH AFTER 3 DAYS Medications Current Medications Sodium Chloride 1,000 ml @ 1,000 mls/hr Q1H IV Last administered on 10/01/16 07:28; Start 10/01/16 at 07:30; Stop 10/01/16 at 08:29; Status DC Sodium Chloride (Normal Saline Flush) 10 ml QSHIFT PRN IV AFTER MEDS AND BLOOD DRAWS; Start 10/01/16 at 07:15 Fentanyl Citrate (Fentanyl 2ml Vial) 50 mcg 1X ONCE IV Last administered on 07:59; Start 10/01/16 at 08:00; Stop 10/01/16 at 08:01; Status DC Albuterol/ Ipratropium (Duoneb) 3 ml 1X ONCE NEB Last administered on 10:05; Start 10/01/16 at 10:15; Stop 10/01/16 at 10:16; Status DC Methylprednisolone Sodium Succinate (SOLU-Medrol 125MG VIAL) 125 mg 1X ONCE IV Last administered on 10/01/16 10:27; Start 10/01/16 at 10:15; Stop 10/01/16 at 10:16; Status DC Azithromycin 250 ml @ 250 mls/hr 1X ONCE IV Last administered on 10/01/16 10: 27; Start 10/01/16 at 10:15; Stop 10/01/16 at 11:14; Status DC Fentanyl Citrate (Fentanyl 2ml Vial) 75 mcg 1X ONCE IV Last administered on 10:26; Start 10/01/16 at 10:15; Stop 10/01/16 at 10:16; Status DC Ondansetron HCl (Zofran) 4 mg PRN Q8HRS PRN IV NAUSEA/VOMITING; Start 10/01/16 at 10:00; Stop 10/02/16 at 09:59; Status DC Sodium Chloride 1,000 ml @ 100 mls/hr Q10H IV Last administered on 10/02/16 04 :46; Start 10/01/16 at 10:15; Stop 10/02/16 at 10:14; Status DC Acetaminophen (Tylenol) 650 mg PRN Q4HRS PRN PO FEVER; Start 10/01/16 at 10:00; Stop 10/02/16 at 09:59; Status DC Albuterol/ Ipratropium (Duoneb) 3 ml RTQID NEB Last administered on 10/01/16 13 :06; Start 10/01/16 at 12:00; Stop 10/01/16 at 15:24; Status DC Aspirin (Ecotrin) 81 mg DAILY PO ; Start 10/02/16 at 09:00; Stop 10/02/16 at 09:00 ; Status DC Furosemide (Lasix) 40 mg DAILY PO Last administered on 10/03/16 08:35; Start at 16:00 Oxycodone/ Acetaminophen (Percocet 10/325) 1 tab QID PO Last administered on 20:46; Start 10/01/16 at 17:00 Pantoprazole Sodium (Protonix) 40 mg DAILYAC PO Last administered on 10/03/16 08:35; Start 10/01/16 at 16:00 Sertraline HCl (Zoloft) 100 mg DAILY PO Last administered on 10/03/16 08:35; Start 10/01/16 at 16:00 Warfarin Sodium (Coumadin) 5 mg DAILY16 PO Last administered on 10/03/16 16:23 ; Start 10/01/16 at 16:00 Non-Formulary Medication 2 puff QID IH ; Start 10/01/16 at 17:00; Status UNV Non-Formulary Medication 2 puff BID IH ; Start 10/01/16 at 21:00; Status UNV Cyclobenzaprine HCl (Flexeril) 5 mg QHS PO Last administered on 10/03/16 20:45 ; Start 10/01/16 at 21:00 Potassium Chloride (Klor-Con) 20 meq DAILYWBKFT PO Last administered on 08:36; Start 10/02/16 at 08:00 Non-Formulary Medication 1 cap DAILY IH ; Start 10/02/16 at 09:00; Status UNV Lorazepam (Ativan) 1 mg PRN Q6HRS PRN PO ANXIETY / AGITATION Last administered on 10/03/16 09:31; Start 10/01/16 at 15:15 Ketorolac Tromethamine (Toradol) 15 mg 1X ONCE IV Last administered on 16:24; Start 10/01/16 at 15:30; Stop 10/01/16 at 15:31; Status DC Budesonide (Pulmicort) 0.5 mg RTBID NEB Last administered on 10/04/16 07:49; Start 10/01/16 at 20:00 Warfarin Sodium (Coumadin Per Physician) 1 each PRN DAILY PRN MC SEE COMMENTS Last administered on 10/02/16 13:56; Start 10/01/16 at 15:30 Albuterol/ Ipratropium (Duoneb) 3 ml RTQID NEB Last administered on 10/04/16 04 :05; Start 10/01/16 at 16:00 Azithromycin (Zithromax) 250 mg DAILY PO Last administered on 10/03/16 08:35; Start 10/02/16 at 09:00 Aspirin ([employer] Aspirin) 325 mg DAILYWBKFT PO Last administered on 10/03/16 08: 35; Start 10/02/16 at 08:00 Aspirin ([place] Aspirin) 325 mg 1X ONCE PO Last administered on 10/01/16 16:25 ; Start 10/01/16 at 16:15; Stop 10/01/16 at 16:16; Status DC Quetiapine Fumarate (SEROquel) 50 mg 1X ONCE PO Last administered on 10/02/16 00:16; Start 10/01/16 at 23:30; Stop 10/01/16 at 23:31; Status DC Oxycodone HCl (Roxicodone) 10 mg PRN Q3HRS PRN PO SEVERE PAIN Last administered on 10/04/16 06:45; Start 10/02/16 at 04:30 Potassium Chloride (Klor-Con) 40 meq 1X ONCE PO Last administered on 10/02/16 12:35; Start 10/02/16 at 12:30; Stop 10/02/16 at 12:31; Status DC Calcium Carbonate/ Glycine (Tums) 500 mg PRN AFTMEALHC PRN PO INDIGESTION; Start 10/02/16 at 13:15 Al Hydroxide/Mg Hydroxide (Mylanta Plus Xs) 30 ml PRN Q2HR PRN PO HEARTBURN / GAS Last administered on 8/7/17at 13:20; Start 10/02/16 at 13:15 Active Scripts Active Reported Furosemide 40 Mg Tablet 1 Tab PO DAILY Pantoprazole Sodium 40 Mg Tablet. 1 Tab PO DAILY Potassium Chloride 20 Meq Tablet.er 20 Meq PO DAILY Warfarin Sodium 5 Mg Tablet 1 Tab PO DAILY Ativan (Lorazepam) 2 Mg Tablet 2 Mg PO TID Spiriva (Tiotropium [place]) 18 Mcg Cap.w.dev 1 Cap IH DAILY Proventil Hfa Inhaler (Albuterol Sulfate) 6.7 Gm Hfa.aer.ad 2 Puff IH QID Cyclobenzaprine Hcl 5 Mg Tablet 1 Tab PO HS Symbicort 160-4.5 Mcg Inhaler (Budesonide/Formoterol Fumarate) 10.2 Gm Hfa.aer.ad 2 Puff IH BID Sertraline Hcl 50 Mg Tablet 100 Mg PO DAILY Zinc 50 Mg Tablet 50 Mg PO Vitamin B Complex 1 Each Capsule 1 Each PO Vitamin E 400 Unit Capsule 400 Unit PO Aspirin Ec (Aspirin) 81 Mg Tablet. 1 Tab PO DAILY Fish Oil Ec 1,200 Mg Softgel ([place]-3S/Dha/Epa/Fish Oil) 1 Each Capsule.dr 1 Each PO Oxycodone-Acetaminophen 10-325 (Oxycodone Hcl/Acetaminophen) 1 Each Tablet 1 Tab PO QID Vitals/I & O Vital Sign - Last 24 Hours 10/03/16 10/03/16 10/03/16 10/03/16 10:58 11:13 12:04 15:00 Temp 96.4 97.6 96.4 97.6 Pulse 116 105 Resp 17 16 B/P (MAP) 130/72 (91) 127/62 (83) Pulse Ox 92 96 O2 Delivery Nasal Cannula Nasal Cannula Nasal Cannula Room Air O2 Flow Rate 2.0 3.0 2.0 10/03/16 10/03/16 10/03/16 10/03/16 16:23 16:45 19:00 20:30 Temp 97.9 97.9 Pulse 102 Resp 18 B/P (MAP) 134/75 (94) Pulse Ox 93 O2 Delivery Nasal Cannula Nasal Cannula Room Air Nasal Cannula O2 Flow Rate 2.0 3.0 2.0 10/03/16 10/03/16 10/03/16 10/04/16 20:46 21:46 23:00 00:21 Temp 98.1 98.1 Pulse 85 Resp 20 18 19 20 B/P (MAP) 147/94 (111) Pulse Ox 96 O2 Delivery Nasal Cannula Nasal Cannula Room Air Nasal Cannula O2 Flow Rate 2.0 2.0 2.0 10/04/16 10/04/16 10/04/16 10/04/16 01:21 03:00 04:05 07:30 Temp 97.7 97.7 97.7 97.7 Pulse 90 79 Resp 18 18 19 B/P (MAP) 138/70 (92) 130/62 (84) Pulse Ox 95 95 O2 Delivery Nasal Cannula Room Air Nasal Cannula Room Air O2 Flow Rate 2.0 3.0 10/04/16 07:50 Pulse Ox 95 O2 Delivery Nasal Cannula O2 Flow Rate 3.0 Intake and Output 10/03/16 10/03/16 10/04/16 15:00 23:00 07:00 Intake Total 500 ml Balance 500 ml CANDELARIA TOWNSEND MD Oct 04, 2016 09:02
[2016-10-04] MEDS: ASPIRIN 325 MG TABLET PO SCH (09:07)
[2016-10-04] MEDS: SERTRALINE 50 MG TABLET. PO SCH (09:08)
[2016-10-04] MEDS: FUROSEMIDE 40 MG TABLET. PO SCH (09:08)
[2016-10-04] MEDS: PANTOPRAZOLE 40 MG TABLET.DR. PO SCH (09:08)
[2016-10-04] MEDS: AZITHROMYCIN 250 MG TABLET. PO SCH (09:09)
[2016-10-04] MEDS: POTASSIUM CHLORIDE 20 MEQ TABLET.ER. PO SCH (09:09)
[2016-10-04] MEDS: oxyCODONE/APAP 10/325 1 TAB TABLET PO SCH ×2 (09:14→13:47)
--- NOTE | 2016-10-04 10:22 | PDOC ---
PROGRESS NOTES Assessment Problems Medical Problems: (1) Acute and chronic respiratory failure ([id number]) Status: Acute (2) Altered mental status Status: Acute (3) COPD exacerbation Status: Acute (4) TIA (transient ischemic attack) Status: Acute Metabolic encephalopathy, Laboratory studies negative. Suspect prior dementia, but part of the problem may be his hearing loss Cervical and lumbar degenerative changes. Compression fractures, T6 and T10 Plan Agree with Dr. Urban, no need for intervention regarding the compression fractures Okay for discharge Follow-up with me in a month to reassess for dementia. Objective Vital Signs Date Time Temp Pulse Resp B/P (MAP) Pulse Ox O2 Delivery O2 Flow Rate FiO2 10/04/16 09:14 95 Nasal Cannula 3.0 10/04/16 07:30 97.7 79 19 130/62 (84) 97.7 Intake and Output 10/04/16 07:00 Intake Total 500 ml Balance 500 ml Intake Oral 500 ml # Voids 14 # Bowel Movements 2 PHYSICAL EXAM Alert. Very hard of hearing. Oriented to place and person, not date. PERRL. EOMI. CN: no focal findings. Muscle tone: normal. Muscle strength: 5/5 DTR: 1+ Plantar reflex: flexor Gait: not examined in bed. Sensory exam: no abnormal findings. No cerebellar signs elicited. No thoracic spine tenderness Review of Relevant I have reviewed the following items guido (where applicable) has been applied. Labs Laboratory Tests Test 10/02/16 16:54 10/03/16 04:25 10/04/16 04:08 O2 Saturation 94 % (92-99) Arterial Blood pH 7.45 (7.35-7.45) Arterial Blood pCO2 at Patient Temp 38 mmHg (35-46) Arterial Blood pO2 at Patient Temp 69 mmHg (65-108) Arterial Blood HCO3 26 mmol/L (21-28) Arterial Blood Base Excess 2 mmol/L (-3-3) FiO2 28 Erythrocyte Sedimentation Rate 18 (0-15) Ammonia 24 mcmol/L (11-34) Vitamin B12 Level 360 pg/mL (247-911) Serum Folate 8.74 ng/ml (3.2-20.0) Prothrombin Time 26.4 SEC (11.7-14.0) Prothromb Time International Ratio 2.6 (0.8-1.1) Laboratory Tests Test 10/04/16 04:08 Prothrombin Time 26.4 SEC (11.7-14.0) Prothromb Time International Ratio 2.6 (0.8-1.1) Microbiology 10/01/16 Blood Culture - Preliminary, Resulted NO GROWTH AFTER 3 DAYS Medications Current Medications Sodium Chloride 1,000 ml @ 1,000 mls/hr Q1H IV Last administered on 10/01/16 07:28; Start 10/01/16 at 07:30; Stop 10/01/16 at 08:29; Status DC Sodium Chloride (Normal Saline Flush) 10 ml QSHIFT PRN IV AFTER MEDS AND BLOOD DRAWS; Start 10/01/16 at 07:15 Fentanyl Citrate (Fentanyl 2ml Vial) 50 mcg 1X ONCE IV Last administered on 07:59; Start 10/01/16 at 08:00; Stop 10/01/16 at 08:01; Status DC Albuterol/ Ipratropium (Duoneb) 3 ml 1X ONCE NEB Last administered on 10:05; Start 10/01/16 at 10:15; Stop 10/01/16 at 10:16; Status DC Methylprednisolone Sodium Succinate (SOLU-Medrol 125MG VIAL) 125 mg 1X ONCE IV Last administered on 10/01/16 10:27; Start 10/01/16 at 10:15; Stop 10/01/16 at 10:16; Status DC Azithromycin 250 ml @ 250 mls/hr 1X ONCE IV Last administered on 10/01/16 10: 27; Start 10/01/16 at 10:15; Stop 10/01/16 at 11:14; Status DC Fentanyl Citrate (Fentanyl 2ml Vial) 75 mcg 1X ONCE IV Last administered on 10:26; Start 10/01/16 at 10:15; Stop 10/01/16 at 10:16; Status DC Ondansetron HCl (Zofran) 4 mg PRN Q8HRS PRN IV NAUSEA/VOMITING; Start 10/01/16 at 10:00; Stop 10/02/16 at 09:59; Status DC Sodium Chloride 1,000 ml @ 100 mls/hr Q10H IV Last administered on 10/02/16 04 :46; Start 10/01/16 at 10:15; Stop 10/02/16 at 10:14; Status DC Acetaminophen (Tylenol) 650 mg PRN Q4HRS PRN PO FEVER; Start 10/01/16 at 10:00; Stop 10/02/16 at 09:59; Status DC Albuterol/ Ipratropium (Duoneb) 3 ml RTQID NEB Last administered on 10/01/16 13 :06; Start 10/01/16 at 12:00; Stop 10/01/16 at 15:24; Status DC Aspirin (Ecotrin) 81 mg DAILY PO ; Start 10/02/16 at 09:00; Stop 10/02/16 at 09:00 ; Status DC Furosemide (Lasix) 40 mg DAILY PO Last administered on 10/04/16 09:08; Start at 16:00 Oxycodone/ Acetaminophen (Percocet 10/325) 1 tab QID PO Last administered on 09:14; Start 10/01/16 at 17:00 Pantoprazole Sodium (Protonix) 40 mg DAILYAC PO Last administered on 10/04/16 09:08; Start 10/01/16 at 16:00 Sertraline HCl (Zoloft) 100 mg DAILY PO Last administered on 10/04/16 09:08; Start 10/01/16 at 16:00 Warfarin Sodium (Coumadin) 5 mg DAILY16 PO Last administered on 10/03/16 16:23 ; Start 10/01/16 at 16:00 Non-Formulary Medication 2 puff QID IH ; Start 10/01/16 at 17:00; Status UNV Non-Formulary Medication 2 puff BID IH ; Start 10/01/16 at 21:00; Status UNV Cyclobenzaprine HCl (Flexeril) 5 mg QHS PO Last administered on 10/03/16 20:45 ; Start 10/01/16 at 21:00 Potassium Chloride (Klor-Con) 20 meq DAILYWBKFT PO Last administered on 09:09; Start 10/02/16 at 08:00 Non-Formulary Medication 1 cap DAILY IH ; Start 10/02/16 at 09:00; Status UNV Lorazepam (Ativan) 1 mg PRN Q6HRS PRN PO ANXIETY / AGITATION Last administered on 10/03/16 09:31; Start 10/01/16 at 15:15 Ketorolac Tromethamine (Toradol) 15 mg 1X ONCE IV Last administered on 16:24; Start 10/01/16 at 15:30; Stop 10/01/16 at 15:31; Status DC Budesonide (Pulmicort) 0.5 mg RTBID NEB Last administered on 10/04/16 07:49; Start 10/01/16 at 20:00 Warfarin Sodium (Coumadin Per Physician) 1 each PRN DAILY PRN MC SEE COMMENTS Last administered on 10/02/16 13:56; Start 10/01/16 at 15:30 Albuterol/ Ipratropium (Duoneb) 3 ml RTQID NEB Last administered on 10/04/16 04 :05; Start 10/01/16 at 16:00 Azithromycin (Zithromax) 250 mg DAILY PO Last administered on 10/04/16 09:09; Start 10/02/16 at 09:00 Aspirin ([employer] Aspirin) 325 mg DAILYWBKFT PO Last administered on 10/04/16 09: 07; Start 10/02/16 at 08:00 Aspirin ([employer] Aspirin) 325 mg 1X ONCE PO Last administered on 10/01/16 16:25 ; Start 10/01/16 at 16:15; Stop 10/01/16 at 16:16; Status DC Quetiapine Fumarate (SEROquel) 50 mg 1X ONCE PO Last administered on 10/02/16 00:16; Start 10/01/16 at 23:30; Stop 10/01/16 at 23:31; Status DC Oxycodone HCl (Roxicodone) 10 mg PRN Q3HRS PRN PO SEVERE PAIN Last administered on 10/04/16 06:45; Start 10/02/16 at 04:30 Potassium Chloride (Klor-Con) 40 meq 1X ONCE PO Last administered on 10/02/16 12:35; Start 10/02/16 at 12:30; Stop 10/02/16 at 12:31; Status DC Calcium Carbonate/ Glycine (Tums) 500 mg PRN AFTMEALHC PRN PO INDIGESTION; Start 10/02/16 at 13:15 Al Hydroxide/Mg Hydroxide (Mylanta Plus Xs) 30 ml PRN Q2HR PRN PO HEARTBURN / GAS Last administered on 10/02/16t 13:20; Start 10/02/16 at 13:15 Active Scripts Active Reported Furosemide 40 Mg Tablet 1 Tab PO DAILY Pantoprazole Sodium 40 Mg Tablet. 1 Tab PO DAILY Potassium Chloride 20 Meq Tablet.er 20 Meq PO DAILY Warfarin Sodium 5 Mg Tablet 1 Tab PO DAILY Ativan (Lorazepam) 2 Mg Tablet 2 Mg PO TID Spiriva (Tiotropium [place]) 18 Mcg Cap.w.dev 1 Cap IH DAILY Proventil Hfa Inhaler (Albuterol Sulfate) 6.7 Gm Hfa.aer.ad 2 Puff IH QID Cyclobenzaprine Hcl 5 Mg Tablet 1 Tab PO HS Symbicort 160-4.5 Mcg Inhaler (Budesonide/Formoterol Fumarate) 10.2 Gm Hfa.aer.ad 2 Puff IH BID Sertraline Hcl 50 Mg Tablet 100 Mg PO DAILY Zinc 50 Mg Tablet 50 Mg PO Vitamin B Complex 1 Each Capsule 1 Each PO Vitamin E 400 Unit Capsule 400 Unit PO Aspirin Ec (Aspirin) 81 Mg Tablet. 1 Tab PO DAILY Fish Oil Ec 1,200 Mg Softgel ([place]-3S/Dha/Epa/Fish Oil) 1 Each Capsule. 1 Each PO Oxycodone-Acetaminophen 10-325 (Oxycodone Hcl/Acetaminophen) 1 Each Tablet 1 Tab PO QID Vitals/I & O Vital Sign - Last 24 Hours 10/03/16 10/03/16 10/03/16 10/03/16 10:58 11:13 12:04 15:00 Temp 96.4 97.6 96.4 97.6 Pulse 116 105 Resp 17 16 B/P (MAP) 130/72 (91) 127/62 (83) Pulse Ox 92 96 O2 Delivery Nasal Cannula Nasal Cannula Nasal Cannula Room Air O2 Flow Rate 2.0 3.0 2.0 10/03/16 10/03/16 10/03/16 10/03/16 16:23 16:45 19:00 20:30 Temp 97.9 97.9 Pulse 102 Resp 18 B/P (MAP) 134/75 (94) Pulse Ox 93 O2 Delivery Nasal Cannula Nasal Cannula Room Air Nasal Cannula O2 Flow Rate 2.0 3.0 2.0 10/03/16 10/03/16 10/03/16 10/04/16 20:46 21:46 23:00 00:21 Temp 98.1 98.1 Pulse 85 Resp 20 18 19 20 B/P (MAP) 147/94 (111) Pulse Ox 96 O2 Delivery Nasal Cannula Nasal Cannula Room Air Nasal Cannula O2 Flow Rate 2.0 2.0 2.0 10/04/16 10/04/16 10/04/16 10/04/16 01:21 03:00 04:05 07:30 Temp 97.7 97.7 97.7 97.7 Pulse 90 79 Resp 18 18 19 B/P (MAP) 138/70 (92) 130/62 (84) Pulse Ox 95 95 O2 Delivery Room Air Nasal Cannula Room Air O2 Flow Rate 3.0 10/04/16 10/04/16 10/04/16 10/04/16 07:50 08:00 09:14 09:14 Pulse Ox 95 95 95 O2 Delivery Nasal Cannula Nasal Cannula Nasal Cannula Nasal Cannula O2 Flow Rate 3.0 3.0 3.0 3.0 Intake and Output 10/03/16 10/03/16 10/04/16 15:00 23:00 07:00 Intake Total 500 ml Balance 500 ml Images Thoracic MRI reviewed RIKY RAMÍREZ MD Oct 04, 2016 10:22
[2016-10-04 11:21] VITALS: BP 121/73
--- NOTE | 2016-10-04 12:09 | PDOC3 ---
Discharge Summary Visit Information Date of Admission: Oct 01, 2016 Date of Discharge: Oct 04, 2016 Admitting Diagnosis Comment: confusion, metabolic encephalopathy probably undiagnosed dementia, hx dementia COPD, chronic stable GEn weakness, mult joint pain, hips, knees, back with OA and mult fractures weakness and debility and falls, afib, chronic diastolic CHF, not on AC, high fall risk HArd of hearing DJD cervical and lumbar spine OLd compression fx throacic spine Final Diagnosis Problems Medical Problems: (1) Acute and chronic respiratory failure ([id number]) Status: Acute (2) Altered mental status Status: Acute (3) COPD exacerbation Status: Acute (4) TIA (transient ischemic attack) Status: Acute Brief Hospital Course Allergies Allergies Coded Allergies Type Severity Reaction Last Updated Verified ciprofloxacin Allergy Intermediate SKIN PEELS 12/03/14 Yes pentazocine Allergy Intermediate NERVOUS 12/03/14 Yes I S O L A T I O N *CONTACT* Allergy Unknown 06/11/14 Yes Vital Signs Vital Signs Date Time Temp Pulse Resp B/P (MAP) Pulse Ox O2 Delivery O2 Flow Rate FiO2 10/04/16 11:29 Nasal Cannula 3.0 10/04/16 11:21 98.4 87 19 121/73 (89) 97 98.4 Lab Results Laboratory Tests Test 10/02/16 16:54 10/03/16 04:25 10/04/16 04:08 O2 Saturation 94 % (92-99) Arterial Blood pH 7.45 (7.35-7.45) Arterial Blood pCO2 at Patient Temp 38 mmHg (35-46) Arterial Blood pO2 at Patient Temp 69 mmHg (65-108) Arterial Blood HCO3 26 mmol/L (21-28) Arterial Blood Base Excess 2 mmol/L (-3-3) FiO2 28 Erythrocyte Sedimentation Rate 18 (0-15) Ammonia 24 mcmol/L (11-34) Vitamin B12 Level 360 pg/mL (247-911) Serum Folate 8.74 ng/ml (3.2-20.0) Prothrombin Time 26.4 SEC (11.7-14.0) Prothromb Time International Ratio 2.6 (0.8-1.1) Laboratory Tests Test 10/04/16 04:08 Prothrombin Time 26.4 SEC (11.7-14.0) Prothromb Time International Ratio 2.6 (0.8-1.1) Brief Hospital Course Mr. Franz is a 76 old [sex] who presented with MSK aches and pains and symptoms of possible beginning dementia, Very hard of hearing, PHysiatry and neurology consulted. W/up pretty much UR,. STable to go home with HH< NO SNU needs for now Ff up as OP neuro for dementia xrays and MRI back showed some DJD spine and thoracic compression fxs, age indeterminate, BUt he has good mobility and no pain so no surgical intervention done To cont all home meds,. Pt seen and examined, counselled > 50% time Discharge Information Condition at Discharge: Improved, Stable Disposition/Orders: D/C to Home w/ HH Scheduled Albuterol Sulfate (Proventil Hfa Inhaler), 2 PUFF IH QID, (Reported) Aspirin (Aspirin Ec), 1 TAB PO DAILY, (Reported) Budesonide/Formoterol Fumarate (Symbicort 160-4.5 Mcg Inhaler), 2 PUFF IH BID, ( Reported) Cyclobenzaprine Hcl (Cyclobenzaprine Hcl), 1 TAB PO HS, (Reported) Furosemide (Furosemide), 1 TAB PO DAILY, (Reported) Lorazepam (Ativan), 2 MG PO TID, (Reported) Oxycodone Hcl/Acetaminophen (Oxycodone-Acetaminophen 10-325), 1 TAB PO QID, ( Reported) Pantoprazole Sodium (Pantoprazole Sodium), 1 TAB PO DAILY, (Reported) Potassium Chloride (Potassium Chloride), 20 MEQ PO DAILY, (Reported) Sertraline Hcl (Sertraline Hcl), 100 MG PO DAILY, (Reported) Tiotropium Staples (Spiriva), 1 CAP IH DAILY, (Reported) Warfarin Sodium (Warfarin Sodium), 1 TAB PO DAILY, (Reported) Miscellaneous Medications [place]-3S/Dha/Epa/Fish Oil (Fish Oil Ec 1,200 Mg Softgel), 1 EACH PO, (Reported) Vitamin B Complex (Vitamin B Complex), 1 EACH PO, (Reported) Vitamin E (Vitamin E), 400 UNIT PO, (Reported) Zinc (Zinc), 50 MG PO, (Reported) Discontinued Medications Albuterol Sulfate (Albuterol Sulfate Conc Neb Soln), 1 VIAL NEB Q6HRS, (Reported ) Cefuroxime Axetil (Cefuroxime), 500 MG PO BID, (Reported) Metoprolol Tartrate (Metoprolol Tartrate), 1 TAB PO BID, (Reported) Omeprazole (Omeprazole), 1 CAP PO DAILY, (Reported) Warfarin Sodium (Coumadin), 1 TAB PO DAILY, (Reported) Discontinued Reason: Prescription changed ADRIANNA AWAN MD Oct 04, 2016 12:09
== END 2016-10-04 14:00 | disposition home health service (06) | DRG 189 ==
LOC: ER 06:55 → 6 SOUTH 10:00
PROVIDERS: ADMIT Internal Medicine; ATTEND Internal Medicine
DX: J96.20 Acute and chronic respiratory failure, unspecified whether with hypoxia or hypercapnia (principal); G93.41 Metabolic encephalopathy; I49.01 Ventricular fibrillation; I50.32 Chronic diastolic (congestive) heart failure; E27.40 Unspecified adrenocortical insufficiency; J44.1 Chronic obstructive pulmonary disease with (acute) exacerbation; S22.009A Unspecified fracture of unspecified thoracic vertebra, initial encounter for closed fracture; E11.9 Type 2 diabetes mellitus without complications; E78.00 Pure hypercholesterolemia, unspecified; E78.5 Hyperlipidemia, unspecified; F03.90 Unspecified dementia, unspecified severity, without behavioral disturbance, psychotic disturbance, mood disturbance, and anxiety; M47.896 Other spondylosis, lumbar region; M47.892 Other spondylosis, cervical region; F17.210 Nicotine dependence, cigarettes, uncomplicated; G40.909 Epilepsy, unspecified, not intractable, without status epilepticus; G89.29 Other chronic pain; H91.90 Unspecified hearing loss, unspecified ear; I11.0 Hypertensive heart disease with heart failure; I25.10 Atherosclerotic heart disease of native coronary artery without angina pectoris; M79.7 Fibromyalgia; I27.2 Other secondary pulmonary hypertension; M19.072 Primary osteoarthritis, left ankle and foot; M19.071 Primary osteoarthritis, right ankle and foot; M17.11 Unilateral primary osteoarthritis, right knee; Z96.652 Presence of left artificial knee joint; I35.0 Nonrheumatic aortic (valve) stenosis; I48.91 Unspecified atrial fibrillation; K21.9 Gastro-esophageal reflux disease without esophagitis; W19.XXXA Unspecified fall, initial encounter; Y93.89 Activity, other specified; Y92.89 Other specified places as the place of occurrence of the external cause; Y99.8 Other external cause status; Z79.899 Other long term (current) drug therapy; Z88.1 Allergy status to other antibiotic agents; Z88.8 Allergy status to other drugs, medicaments and biological substances; Z79.51 Long term (current) use of inhaled steroids; Z95.1 Presence of aortocoronary bypass graft; Z99.81 Dependence on supplemental oxygen; Z79.82 Long term (current) use of aspirin
CPT/HCPCS: 36415; 36600; 70450; 71010; 72020; 72040; 72100; 72146; 80048; 80053; 80061; 80076; 81001; 82140; 82553; 82607; 82746; 82805; 83605; 83735; 83880; 84443; 84484; 85027; 85610; 85651; 85730; 87040; 87641; 93005; 94250; 94640; 94760; 96361; 96365; 96375; J0456; J1885; J2930; J3010; J7030; J7620; J7626; Q0144; 97110; 99291-25

== ENCOUNTER 2016-12-06 15:09 | Emergency (ER) | payer MEDICARE ==
[~2016-12-06] VITALS: Ht 170.2 cm; Wt 56.7 kg
[~2016-12-06 15:09] MED LIST changes: +FURO40TA4 PO; +PANT40TA5 PO; +POTA20TA82 PO; +WARF5TAB7 PO
[2016-12-06 16:05] LABS: BASO # 0.1 x10^3/uL (0.0-0.2); BASO % 1 % (0-3); EOS % 3 % (0-3); HEMATOCRIT 39.4 % (39.0-53.0); LYMPH # 1.1 x10^3/uL (1.0-4.8); LYMPH % 15 % (24-48); MEAN CORPUSCULAR HEMOGLOBIN 31 pg (25-35); MEAN CORPUSCULAR HGB CONC 33 g/dL (31-37); MEAN CORPUSCULAR VOLUME 92 fL (79-100); MONO % 9 % (0-9); NEUT % 73 % (31-73); PLATELET COUNT 286 x10^3/uL (140-400); RED BLOOD COUNT 4.27 x10^6/uL (4.30-5.70); RED CELL DISTRIBUTION WIDTH 14.6 % (11.5-14.5); WHITE BLOOD COUNT 7.2 x10^3/uL (4.0-11.0)
[2016-12-06 16:13] LABS: CALCIUM 9.7 mg/dL (8.5-10.1); CREATININE 1.1 mg/dL (0.7-1.3); GFR 65.4
[2016-12-06 16:16] LABS: INR 1.7 (0.8-1.1); PROTHROMBIN TIME PATIENT 19.3 SEC (11.7-14.0)
--- NOTE | 2016-12-06 16:57 | RAD ---
Indication fall. Pain. 2 AP views of the pelvis were obtained as well as a targeted AP image of the right hip. There are bilateral hip replacements. There is probable bony demineralization. An acute bony finding is not seen
--- NOTE | 2016-12-06 17:00 | RAD ---
Indication fall. Trauma. Pain. A single view of the chest was obtained and is compared to an examination 10/01/2016. Postoperative changes are noted. There are background changes compatible with emphysema or fibrosis. There is blunting of the both costophrenic angles which probably reflects scar. There is no pneumothorax. The visualized bony structures appear grossly intact. IMPRESSION: Chronic changes. No definite acute finding seen in the chest
--- NOTE | 2016-12-06 18:02 | PHYS DOC ---
Past Medical History Past Medical History: CHF, COPD, MRSA Additional Past Medical Histor: Fx in spine Past Surgical History: Hip Replacement, Knee Replacement, Other Additional Past Surgical Histo: Heart Valve Replacement, R Rotater Cuff, L elbow. beign lung tumor, hernia Additional Information: Quit 3 years ago Alcohol Use: None Drug Use: None Adult General Chief Complaint Chief Complaint: LOWER EXT PAIN HPI HPI Patient is a 76 year old male with history of congestive heart failure and COPD who presents with right hip pain, left wrist pain and generalized body aches after falling yesterday. Patient tripped over his oxygen cord which caused him to fall. He landed face forward on his right side. Patient hasn't been ambulatory with a walker since the time of fall. He denies headache or midline neck pain. He is currently anticoagulated on Coumadin and has not had a recent INR checked. He denies chest pain, shortness of breath and abdominal pain. No headache. Denies medical symptoms prior to fall. Patient is hard of hearing and history is assisted by his daughter who is present at bedside.[] Review of Systems Review of Systems View symptoms as per history of present illness. All other review symptoms are negative. Allergies Allergies Allergies Coded Allergies Type Severity Reaction Last Updated Verified ciprofloxacin Allergy Intermediate SKIN PEELS 12/03/14 Yes pentazocine Allergy Intermediate NERVOUS 12/03/14 Yes I S O L A T I O N *CONTACT* Allergy Unknown 06/11/14 Yes Physical Exam Physical Exam Constitutional: Well developed, well nourished, no acute distress, non-toxic appearance. [] HENT: Normocephalic, atraumatic, bilateral external ears normal, and appearing: oropharynx moist, no oral exudates, nose normal. [] Eyes: PERRLA, EOMI, conjunctiva normal, no discharge. [] Neck: Normal range of motion, no midline tenderness. [] Cardiovascular:Heart rate regular rhythm, no murmur [] Lungs & Thorax: Bilateral breath sounds clear to auscultation. No chest wall tenderness or subcutaneous emphysema appreciated. [] Abdomen: Bowel sounds normal, soft, no tenderness. [] Skin: Warm, dry, no erythema, no rash. [] Back: No tenderness. [] Extremities: Left wrist, dorsal soft tissue tenderness, no deformity, bruising, or bony tenderness appreciated. Right pelvis, right hip pain, tenderness or bruising swelling or deformities appreciated. [] Neurologic: Alert and oriented, normal motor function, normal sensory function, no focal deficits noted. [] Psychologic: Affect normal, judgement normal, mood normal. [] Current Patient Data Vital Signs Vital Signs Date Time Temp Pulse Resp B/P (MAP) Pulse Ox O2 Delivery O2 Flow Rate FiO2 12/06/16 16:49 77 124/68 (86) 93 Nasal Cannula 3.0 12/06/16 16:35 18 12/06/16 15:27 97.8 97.8 Lab Values Laboratory Tests Test 12/06/16 15:35 White Blood Count 7.2 x10^3/uL (4.0-11.0) Red Blood Count 4.27 x10^6/uL (4.30-5.70) L Hemoglobin 13.0 g/dL (13.0-17.5) Hematocrit 39.4 % (39.0-53.0) Mean Corpuscular Volume 92 fL (79-100) Mean Corpuscular Hemoglobin 31 pg (25-35) Mean Corpuscular Hemoglobin Concent 33 g/dL (31-37) Red Cell Distribution Width 14.6 % (11.5-14.5) H Platelet Count 286 x10^3/uL (140-400) Neutrophils (%) (Auto) 73 % (31-73) Lymphocytes (%) (Auto) 15 % (24-48) L Monocytes (%) (Auto) 9 % (0-9) Eosinophils (%) (Auto) 3 % (0-3) Basophils (%) (Auto) 1 % (0-3) Neutrophils # (Auto) 5.2 x10^3uL (1.8-7.7) Lymphocytes # (Auto) 1.1 x10^3/uL (1.0-4.8) Monocytes # (Auto) 0.7 x10^3/uL (0.0-1.1) Eosinophils # (Auto) 0.2 x10^3/uL (0.0-0.7) Basophils # (Auto) 0.1 x10^3/uL (0.0-0.2) Prothrombin Time 19.3 SEC (11.7-14.0) H Prothrombin Time INR 1.7 (0.8-1.1) H Sodium Level 138 mmol/L (136-145) Potassium Level 4.0 mmol/L (3.5-5.1) Chloride Level 102 mmol/L (98-107) Carbon Dioxide Level 29 mmol/L (21-32) Anion Gap 7 (6-14) Blood Urea Nitrogen 25 mg/dL (8-26) Creatinine 1.1 mg/dL (0.7-1.3) Estimated GFR (Cockcroft-Gault) 65.4 Glucose Level 115 mg/dL (70-99) H Calcium Level 9.7 mg/dL (8.5-10.1) Laboratory Tests 12/06/16 15:35 Laboratory Tests 12/06/16 15:35 EKG EKG [] Radiology/Procedures Radiology/Procedures [Chest x-ray/right hip/pelvis: No obvious acute injury per radiology report.] Course & Med Decision Making Course & Med Decision Making Pertinent Labs and Imaging studies reviewed. (See chart for details) [Patient alert and oriented, normal vital signs, abdomen soft nontender. No gross deformity of point bony tenderness, no bruising or swelling to suggest trauma. Chest x-ray does not show evidence of rib fracture, pneumothorax or hemothorax. No acute bony findings on pelvic x-ray. Patient is able to ambulate at home with walker. Pain addressed in the emergency department. Recommend continued supportive care with PCP follow-up for reevaluation. Patient may benefit from physical therapy if symptoms persist. Return precautions reviewed. Patient family member verbalized understanding agreement with discharge instructions prior to departure.] Dragon Disclaimer Dragon Disclaimer This electronic medical record was generated, in whole or in part, using a voice recognition dictation system. Departure Departure Impression: Primary Impression: Arthralgia Additional Impression: Anticoagulated on Coumadin Disposition: 01 HOME, SELF-CARE Condition: GOOD Referrals: ILIANA PAUL (PCP) Patient Instructions: Arthralgia, [id number] Additional Instructions: You were evaluated emergency department for an accidental fall resulting in body aches and pains. Imaging studies were performed and did not show evidence of acute injury or fracture. Your INR checked and is 1.7. Please continue home pain medications as directed and use walker to avoid future falls. Follow-up with your PCP in 3-5 days for reevaluation and further management of Coumadin. If you develop new or worsening symptoms, please return to the emergency department. Problem Qualifiers EAMON CARNEY DO Dec 06, 2016 18:02
[2016-12-06 18:12] VITALS: BP 124/66
[2016-12-06] MEDS ORDERED: oxyCODONE/APAP 5/325 1 TAB TABLET PO ONE (18:15)
== END 2016-12-06 18:25 | disposition home or self-care (01) ==
LOC: ER 15:09
DX: M25.551 Pain in right hip (principal); M25.532 Pain in left wrist; J44.9 Chronic obstructive pulmonary disease, unspecified; I50.9 Heart failure, unspecified; Z86.14 Personal history of Methicillin resistant Staphylococcus aureus infection; Z79.01 Long term (current) use of anticoagulants; Z95.2 Presence of prosthetic heart valve; Z88.1 Allergy status to other antibiotic agents; Z88.8 Allergy status to other drugs, medicaments and biological substances; Z91.041 Radiographic dye allergy status; Z87.891 Personal history of nicotine dependence; W01.0XXA Fall on same level from slipping, tripping and stumbling without subsequent striking against object, initial encounter; Y93.89 Activity, other specified; Y99.8 Other external cause status; Y92.89 Other specified places as the place of occurrence of the external cause
CPT/HCPCS: 36415; 71010; 73502; 80048; 85025; 85610; 99285-25

== ENCOUNTER 2017-07-07 15:11 | Emergency (ER) | payer MEDICARE ==
[2017-07-07] MEDS: LIDOCAINE WITH 8.4% SOD BICARB 3 ML DISP.SYRIN. INJ (15:57)
[2017-07-07] MEDS: NEOMY/BACITR/POLYMYXIN OINT PACKET. TP (15:57)
[2017-07-07] MEDS: DIPHTH,PERTUSS(ACELL),TET TOX 0.5 ML DISP.SYRIN. VAX IM (18:09)
== END 2017-07-07 18:22 | disposition home or self-care (01) ==
LOC: ER 18:22
DX: S01.111A Laceration without foreign body of right eyelid and periocular area, initial encounter (principal); S51.811A Laceration without foreign body of right forearm, initial encounter; S00.83XA Contusion of other part of head, initial encounter; M25.552 Pain in left hip; G89.29 Other chronic pain; J44.9 Chronic obstructive pulmonary disease, unspecified; Z96.641 Presence of right artificial hip joint; Z95.2 Presence of prosthetic heart valve; Z99.81 Dependence on supplemental oxygen; I50.9 Heart failure, unspecified; Z88.1 Allergy status to other antibiotic agents; Z91.041 Radiographic dye allergy status; Z88.8 Allergy status to other drugs, medicaments and biological substances; W01.198A Fall on same level from slipping, tripping and stumbling with subsequent striking against other object, initial encounter; Y93.89 Activity, other specified; Y99.8 Other external cause status; Y92.89 Other specified places as the place of occurrence of the external cause
CPT/HCPCS: 12013; 70450; 70486; 72125; 73030; 73090; 73521; 90471; 90715; 99284-25